=== PATIENT | male | born 1980 | race Caucasian/White ===

== ENCOUNTER 2020-06-29 18:51 | Inpatient (IN) | payer MEDICAID, SELFPAY ==
[2020-06-29 18:52] VITALS: BP 135/92; PULSE 121; RESP 14; TEMP 37; O2SAT 93; BMI 25.1
--- NOTE | 2020-06-29 19:18 | EKG12_ITS ---
Test Reason : ROUTINE Blood Pressure : / mmHG Vent. Rate : 105 BPM Atrial Rate : 105 BPM P-R Int : 178 ms QRS Dur : 086 ms QT Int : 348 ms P-R-T Axes : 070 078 056 degrees QTc Int : 459 ms Sinus tachycardia Septal infarct , age undetermined Abnormal ECG Confirmed by DARELL JONES, MOON ([id number]), mapping editor NOE PEREZ ([id number]) on 07/02/2020 2:57:32 PM Referred By: Confirmed By:TASHIA LOZOYA MD
--- NOTE | 2020-06-29 19:18 | ED.DCSUM_ITS ---
History of Present Illness Chief Complaint: Substance Abuse Informant: Patient Narrative: 9-year-old female with history of EtOH abuse presenting with intoxication and desire to tox. He states he has been drinking heavily for the past 4 years. He states he drinks about 1/5 of diluted vodka daily. Last drink was about an hour to an hour and a half ago. He smokes a pack of cigarettes a day. He states that 2 weeks ago he tried to detox on his own and it almost killed him. He states he drinks 2 cope with his girlfriend. He denies history of withdrawal seizure. He states that when he tried to detox previously he had some nausea and vomiting. Patient states he has a history of drug abuse but no longer does drugs. Past Medical History - Allergies and Home Meds Allergies/Adverse Reactions: Allergies No Known Allergies Allergy (Verified 06/29/20 18:52) Past Medical History: - - EtOH abuse, history of drug abuse, GERD Lives: Spouse/ Significant Other Smoking Status: Current every day smoker Alcohol: Heavy Drugs: None - Family History Maternal Family History: Reports: No pertinent history Paternal Family History: Reports: No pertinent history Review of Systems General: Denies: Chills, Fever, Sweats Eyes: Denies: Visual changes - bilaterally, Diplopia ENT: Denies: Rhinorrhea, Sore throat Cardiovascular: Denies: Chest pain, Palpitations Respiratory: Denies: Dyspnea, Cough, Dyspnea on exertion Gastrointestinal: Denies: Abdominal pain, Nausea, Vomiting, Diarrhea, Melena, Hematochezia Genitourinary: Denies: Dysuria, Hematuria, Frequency Musculoskeletal: Denies: Back pain, Extremity Pain Skin: Denies: Rash, Wounds Neurological: Denies: Headache, Weakness, Numbness Psych: Denies: Depression, Anxiety, Suicidal thoughts, Suicidal ideations, -, - Endocrine: Denies: Polyuria, Polydipsia, Heat intolerance, Cold intolerance, -, - Physical Exam Vital Signs/Narrative: Vital Signs Temp Pulse Resp BP Pulse Ox 06/29/20 18:52 98.6 F 121 H 14 135/92 H 93 General: Well nourished, No Acute Distress Head: Normocephalic, Atraumatic Eyes: Perrl, EOMI. Negative for: Scleral icterus ENT: Moist mucous membranes, No rhinorrhea Cardiovascular: Regular rhythm, Tachycardia Respiratory: No distress, CTA bilaterally Abdomen: Soft, Nontender, Nondistended Extremities: Nontender, No edema Skin: Normal color, No rash. Negative for: Cyanosis, Diaphoresis, Jaundice Neurological: Alert, Oriented x3, Cranial nerves II-XII grossly intact Psychological: Normal Mood, - - Appears intoxicated. Diagnostic/Tx/Re-eval Laboratory Data 06/29/20 06/29/20 06/29/20 19:35 19:35 19:35 WBC 3.3 L RBC 4.23 L Hgb 14.2 Hct 41.6 MCV 98.3 H MCH 33.6 H MCHC 34.1 RDW Std Deviation 49.6 H RDW Coeff of Cesar 13.7 Plt Count 190 MPV 10.3 Immature Gran % (Auto) 0.300 Neut % (Auto) 60.3 Lymph % (Auto) 24.0 [place] % (Auto) 12.3 H Eos % (Auto) 2.2 Baso % (Auto) 0.9 Absolute Neuts (auto) 2.0 Absolute Lymphs (auto) 0.78 L Nucleated RBC % 0 Sodium 139 Potassium 2.9 L Chloride 103 Carbon Dioxide 25.0 Anion Gap 11 BUN 6 L Creatinine 0.83 Estim Creat Clear Calc 135.04 Est GFR (MDRD) Af Amer 132 Est GFR (MDRD) Non-Af 109 BUN/Creatinine Ratio 7.2 L Glucose 94 Calcium 8.4 L Total Bilirubin 0.80 AST 51 H ALT 58 Alkaline Phosphatase 118 H Total Protein 7.3 Albumin 3.8 Globulin 3.5 Albumin/Globulin Ratio 1.1 Lipase 500 H Urine Opiates Screen Urine Methadone Screen Ur Barbiturates Screen Ur Phencyclidine Scrn Ur Amphetamines Screen U Methamphetamin-MDMA U Benzodiazepines Scrn Urine Cocaine Screen U Cannabinoids Screen Ur Drug Screen Comment Ethyl Alcohol 511.0 H* 06/29/20 20:10 WBC RBC Hgb Hct MCV MCH MCHC RDW Std Deviation RDW Coeff of Cesar Plt Count MPV Immature Gran % (Auto) Neut % (Auto) Lymph % (Auto) [place] % (Auto) Eos % (Auto) Baso % (Auto) Absolute Neuts (auto) Absolute Lymphs (auto) Nucleated RBC % Sodium Potassium Chloride Carbon Dioxide Anion Gap BUN Creatinine Estim Creat Clear Calc Est GFR (MDRD) Af Amer Est GFR (MDRD) Non-Af BUN/Creatinine Ratio Glucose Calcium Total Bilirubin AST ALT Alkaline Phosphatase Total Protein Albumin Globulin Albumin/Globulin Ratio Lipase Urine Opiates Screen NEGATIVE Urine Methadone Screen NEGATIVE Ur Barbiturates Screen NEGATIVE Ur Phencyclidine Scrn NEGATIVE Ur Amphetamines Screen NEGATIVE U Methamphetamin-MDMA NEGATIVE U Benzodiazepines Scrn NEGATIVE Urine Cocaine Screen NEGATIVE U Cannabinoids Screen NEGATIVE Ur Drug Screen Comment Ethyl Alcohol - Medical Decision Making Presenting for detox and is slightly tachycardic otherwise not really showing symptoms of withdrawal. EKG performed on arrival interpreted by myself showed a sinus rhythm at 105 bpm. Patient does not appear to be hypertensive and is not currently exhibiting signs of withdrawal however he does appear intoxicated. CBC shows white blood cell count 3.3, hemoglobin 14.2, hematocrit 41.2 platelets 190, CMP shows sodium 139, potassium 2.9, creatinine 0.3, alk phos 118 with other LFTs normal, lipase 500. U tox is negative. EtOH is 511. Patient was discussed with hospitalist for admission for detox. He did not require any medication down here as he is not withdrawing. I did discuss with the hospitalist that I am adding a magnesium level prior to given him potassium. Hospitalist will follow this up on the floor. Patient stable on admission. Impression: 1. EtOH abuse 2. Admission for EtOH detox 3. Elevated lipase 4. Hypokalemia ED Disposition - Plan for ED Patient: Disposition: Acute Care Hospital [facility]
[2020-06-29 19:28] VITALS: BP 134/104; PULSE 102; RESP 13; O2SAT 91
[2020-06-29 19:41] LABS: Absolute Lymphocyte Count 0.78 X10^3/uL (0.83-4.51); Basophil# 0.03 X10^3/uL; Basophil% 0.9 % (0-1); Eosinophil# 0.07 X10^3/uL; Eosinophils% 2.2 % (0-5); Hematocrit 41.6 % (40-54); Hemoglobin 14.2 g/dL (13.0-16.5); Lymphocyte # 0.78 X10^3/ul (4.0); Mean Corp Hgb Conc 34.1 g/dL (32-36); Mean Corpuscular Hgb 33.6 pg (27.0-32.0); Mean Corpuscular Volume 98.3 fL (80-94); Mean Platelet Vol. 10.3 fl (6.2-12.0); Monocyte% 12.3 % (0-10); NRBC Flagged by Analyzer 0 % (0-5); Neutrophil # 1.96 X10^3/uL (2.7-7.7); Neutrophil % 60.3 % (47-70); Platelet Count 190 K/mm3 (150-450); RBC Distribution Width CV 13.7 % (11.6-14.6); RBC Distribution Width SD 49.6 fl (35.1-43.9); Red Blood Count 4.23 M/mm3 (4.6-6.2); White Blood Count 3.3 K/mm3 (4.4-11.0)
[2020-06-29 19:52] VITALS: BP 134/104; PULSE 104; RESP 18; O2SAT 91
[2020-06-29 19:57] LABS: ALB/GLOB Ratio 1.1 RATIO (0.9-2.4); AST(SGOT) 51 U/L (15-37); Alanine Aminotransfer ALT/SGPT 58 U/L (16-61); Albumin, Serum 3.8 g/dL (3.2-5.0); Alkaline Phosphatase 118 U/L (45-117); Anion Gap 11 (5-15); BUN 6 mg/dL (7-18); BUN/Creat Ratio 7.2 RATIO (10-20); Calcium,Total 8.4 mg/dL (8.5-10.1); Chloride 103 mmol/L (98-107); Creatinine, Serum 0.83 mg/dL (0.70-1.30); EST Glomerular Filtration Rate 109 mL/min (>60); Est Glom Filt Rate - Afr Amer 132 mL/min (>60); Estimated Creatinine Clearance 135.04 ml/min; Globulin 3.5 g/dL (2.2-4.2); Glucose 94 mg/dL (74-106); Lipase 500 U/L (73-393); Potassium 2.9 mmol/L (3.5-5.1); Protein, Total 7.3 g/dL (6.4-8.2); Sodium Level 139 mmol/L (136-145)
[2020-06-29 20:50] LABS: Amphetamine Urine VISTA NEGATIVE (<1000 ng/mL); Barbiturate Urine VISTA NEGATIVE (< 200 ng/mL); Benzodiazepine Urine VISTA NEGATIVE (< 200 ng/mL); Cocaine Urine VISTA NEGATIVE (< 300 ng/mL); Ecstacy Urine VISTA NEGATIVE (< 500 ng/mL); Methadone Urine VISTA NEGATIVE (< 300 ng/mL); PCP Urine VISTA NEGATIVE (< 25 ng/mL); THC Urine VISTA NEGATIVE (< 50 ng/mL); Vista UDS pH Range 6
[2020-06-29 21:25] VITALS: BP 129/97; PULSE 92; RESP 18; TEMP 36.7; O2SAT 93
[2020-06-29 21:33] LABS: Magnesium 2.1 mg/dL (1.6-2.6)
--- NOTE | 2020-06-29 21:37 | HP.PCM_ITS ---
Problem List (1) Impending alcohol withdrawal Status: Acute (2) Acute alcohol intoxication Status: Acute (3) Anxiety Status: Chronic (4) Tobacco abuse Status: Chronic (5) Alcohol abuse Status: Chronic History of Present Illness Date of Admission: 06/29/20 Chief Complaint: Requesting admission for alcohol detox The patient is a 39 year old M with past medical history as mentioned above presented to the emergency room requesting admission for alcohol intoxication/impending withdrawal for medical stabilization. Patient has been drinking almost throughout his life, has been drinking more heavily over the last 4 years and last drink was 5:30 PM this evening. He states that he drinks about 1/5 of diluted vodka every day. At this time, he denied any significant withdrawal symptoms. Today afternoon, he had nausea and vomiting when he was drinking. He mentioned that he tried to do detox by himself at home but he could not and he was very sick. He never went for inpatient detoxification program in the past. He denied history of alcohol withdrawal seizure or admission to ICU. He mentioned that he has been very anxious and could not sleep at night and that is why he has been drinking every day to help him sleep. In the emergency department, patient was slightly tachycardic, other vital signs were stable. Routine blood work was remarkable for mild leukopenia probably due to long-term alcoholism, potassium of 2.9. LFT was unremarkable. Lipase was 500. Urine drug screen was negative. Blood alcohol level was 511. EKG revealed sinus tachycardia, no acute ischemic changes. Patient is being admitted for acute alcohol intoxication/impending withdrawal for medical stabilization and also found to have elevated lipase and hypokalemia. Past Medical History Past Medical History (Chronic Problems): Chronic Problems Anxiety (Chronic) Tobacco abuse (Chronic) Alcohol abuse (Chronic) Allergies No Known Allergies Allergy (Verified 06/29/20 18:52) Home Medications: Ambulatory Orders Medication Instructions Recorded Ondansetron [Zofran Odt] 4 mg PO 4X/DAY PRN PRN 06/29/20 Pantoprazole Sodium [Protonix] 40 mg PO DAILY 06/29/20 Surgical History: no surgical history Psychiatric History: Anxiety Lives: Spouse/ Significant Other Smoking Status: Current every day smoker Tobacco Use: Cigarettes Alcohol: Heavy Drugs: None - *Family History Maternal History Items: No pertinent history Paternal History Items: No pertinent history Review of Systems Constitutional: Reports: Anorexia. Denies: Chills, Fever, Weakness Eyes: Denies: Blurred vision, Double vision, Drainage, Redness HEENT: Denies: Difficulty Hearing, Dysphasia, Ear Pain, Eye Pain, Nasal bleeding Cardiovascular: Denies: Chest Pain, Chest Pressure, Edema, Heaviness, Palpitations, Syncope Respiratory: Denies: Cough, Pleuritic Pain, Shortness of Breath, Sputum production, Wheezing Gastrointestinal: Reports: Dyspepsia, Nausea, Vomiting. Denies: Abdominal Pain, Constipation, Diarrhea Genitourinary: Denies: Dysuria, Frequency, Hematuria Musculoskeletal: Denies: Arm Pain, Back Pain, Foot Pain Skin: Denies: Dryness, Rash Neurological: Denies: Balance problems, Double vision, Change in Speech, Slurred speech, Confusion, Headaches, Incoordination Psychiatric: Reports: Anxiety. Denies: Depression Endocrine: Denies: Change in Body Habitus, Polydipsia, Polyuria VTE Information - Inpt Only VTE Present on Admission: No VTE Mechan Device Prophylaxis: None VTE Pharm Prophylaxis ordered?: No - Physical Exam Vitals/I&O's: Vital Signs Temp Pulse Resp BP Pulse Ox 98.0 F 92 18 129/97 H 93 06/29/20 21:25 06/29/20 21:25 06/29/20 21:25 06/29/20 21:25 06/29/20 21:25 Oxygen Delivery Method Room Air Weight: 190 lb 4.143 oz Body Mass Index (BMI) 25.1 General: Alert, Oriented x3, Cooperative, No apparent distress HEENT: Atraumatic, PERRLA, EOMI, Normocephalic Oral: Moist Mucosa, No Gingival or Mucosal Lesions/ Ulcerations Neck: Supple, No JVD, Negative Carotid Bruits, Trachea Midline, Thyroid Normal Size and Texture Lungs: Clear to auscultation, Normal air movement, No rhonchi, No wheeze, No rales Cardiovascular: Regular rate, Regular Rhythm, Normal S1, Normal S2, PMI Normal, Tachycardic Abdomen: Bowel Sounds Present, Soft, Non Tender, Non-Distended, No Hepato- splenomegaly Extremities: No clubbing, No cyanosis, No edema Skin: No rashes, No breakdown Lymphatic: No Cervical, Supraclavicular, or Inguinal Adenopathy Neurological: Cranial nerves II-XII grossly intact, Motor Exam 5/5 strength throughout Psych/Mental Status: Normal Affect, Appropriate, Alert and oriented to time, place, person, mood and affect Laboratory Results 06/29/20 19:35: WBC 3.3 L, RBC 4.23 L, Hgb 14.2, Hct 41.6, MCV 98.3 H, MCH 33.6 H, MCHC 34.1, RDW Std Deviation 49.6 H, RDW Coeff of Cesar 13.7, Plt Count 190, MPV 10.3, Immature Gran % (Auto) 0.300, Neut % (Auto) 60.3, Lymph % (Auto) 24.0, [place] % (Auto) 12.3 H, Eos % (Auto) 2.2, Baso % (Auto) 0.9, Absolute Neuts (auto) 2.0, Absolute Lymphs (auto) 0.78 L, Nucleated RBC % 0 06/29/20 19:35: Sodium 139, Potassium 2.9 L, Chloride 103, Carbon Dioxide 25.0, Anion Gap 11, BUN 6 L, Creatinine 0.83, Estim Creat Clear Calc 135.04, Est GFR (MDRD) Af Amer 132, Est GFR (MDRD) Non-Af 109, BUN/Creatinine Ratio 7.2 L, Glucose 94, Calcium 8.4 L, Total Bilirubin 0.80, AST 51 H, ALT 58, Alkaline Phosphatase 118 H, Total Protein 7.3, Albumin 3.8, Globulin 3.5, Albumin/Globulin Ratio 1.1, Lipase 500 H 06/29/20 19:35: Ethyl Alcohol 511.0 H* 06/29/20 19:35: Magnesium 2.1 06/29/20 20:10: Urine Opiates Screen NEGATIVE, Urine Methadone Screen NEGATIVE, Ur Barbiturates Screen NEGATIVE, Ur Phencyclidine Scrn NEGATIVE, Ur Amphetamines Screen NEGATIVE, U Methamphetamin-MDMA NEGATIVE, U Benzodiazepines Scrn NEGATIVE, Urine Cocaine Screen NEGATIVE, U Cannabinoids Screen NEGATIVE, Ur Drug Screen Comment Assessment/Plan All Active Problems Impending alcohol withdrawal (Acute) Acute alcohol intoxication (Acute) This is a 39 years old male patient presented to the emergency room requesting admission for acute alcohol intoxication/impending withdrawal for medical stabilization. #1 acute alcohol intoxication/impending withdrawal: Blood alcohol level is 511. Urine drug screen is negative. Currently, patient slightly tachycardic, other vital signs are stable. LFT was unremarkable. [facility] telemetry, IV fluids, initiate alcohol withdrawal protocol with tapering phenobarbital, thiamine and folate acid supplement, CIWA protocol, Ativan as needed, as needed Tylenol, Bentyl, gabapentin, Vistaril, Zofran and trazodone, repeat CMP and lipase tomorrow morning, consult 180 program. #2 hypokalemia: Due to nausea and vomiting. Serum magnesium is normal. Plan to replace potassium with K. Dur 60 mEq p.o. x1, repeat BMP tomorrow morning. #3 elevated lipase: Likely due to pancreatic irritation because of alcoholism. Patient denies any epigastric or abdominal pain. Plan: IV fluids, repeat CMP a nd lipase tomorrow morning. #4 alcohol abuse: Plan as above. #5 tobacco abuse: NicoDerm patch. #6 anxiety/insomnia: With suspected depression. Patient has been drinking every day to treat anxiety. He has not been able to sleep overnight. He may need to be started on antidepressant upon discharge. #7 DVT prophylaxis: Low risk patient, no prophylaxis indicated. This note was generated with [employer] dictation software. It may contain incorrect words, spelling, and punctuation that were not noted in checking the note before signing. Inpatient E&M: [id number] Init Hosp L2
[2020-06-29 22:14] VITALS: BMI 24.9
[2020-06-29 22:27] VITALS: BP 128/89; PULSE 95; RESP 16; TEMP 37.3; O2SAT 97
[2020-06-29] MEDS: Potassium Chloride Oral Tablet 20 MEQ 60 MEQ PO (22:45)
[2020-06-29] MEDS: Phenobarbital 32.4 MG Tablet 64.8 MG PO (22:46)
[2020-06-29] MEDS: Pantoprazole Sodium 40 MG Tablet PO (22:48)
[2020-06-29] MEDS: 0.9% Saline Lock 10 ML Syringe IV (23:01)
[2020-06-29] MEDS: 0.9% Normal Saline 1,000 ML 100 ML IV (23:02)
[2020-06-29 23:35] VITALS: PULSE 99
[2020-06-29] MEDS: traZODone 100 MG Tablet PO (23:47)
[2020-06-30] VITALS (12 sets, daily range): BP systolic 104–137; BP diastolic 59–94; PULSE 91–111; RESP 14–18; TEMP 36.4–37.1; O2SAT 94–96
[2020-06-30] MEDS: Phenobarbital 32.4 MG Tablet 64.8 MG PO ×6 (03:08→22:16)
[2020-06-30] MEDS: Ondansetron 8 MG Tablet PO (03:10)
[2020-06-30] MEDS: hydrOXYzine PAM 25 MG Capsule 50 MG PO (03:12)
[2020-06-30 07:06] LABS: ALB/GLOB Ratio 0.9 RATIO (0.9-2.4); AST(SGOT) 41 U/L (15-37); Alanine Aminotransfer ALT/SGPT 49 U/L (16-61); Albumin, Serum 3.1 g/dL (3.2-5.0); Alkaline Phosphatase 102 U/L (45-117); Anion Gap 6 (5-15); BUN 5 mg/dL (7-18); BUN/Creat Ratio 6.8 RATIO (10-20); Calcium,Total 8.3 mg/dL (8.5-10.1); Chloride 106 mmol/L (98-107); Creatinine, Serum 0.74 mg/dL (0.70-1.30); EST Glomerular Filtration Rate 125 mL/min (>60); Est Glom Filt Rate - Afr Amer 151 mL/min (>60); Estimated Creatinine Clearance 149.96 ml/min; Globulin 3.3 g/dL (2.2-4.2); Glucose 80 mg/dL (74-106); Lipase 278 U/L (73-393); Potassium 3.8 mmol/L (3.5-5.1); Protein, Total 6.4 g/dL (6.4-8.2); Sodium Level 138 mmol/L (136-145)
--- NOTE | 2020-06-30 09:34 | ADDICTION ---
This mortgage underwriter attempted to meet with PT to complete required assessments and to plan for d/c. PT was awake but requested to meet with this mortgage underwriter tomorrow (07/01) as he is really out of it and cannot keep my eyes open. This mortgage underwriter will attempt to engage with PT during next visit.
[2020-06-30] MEDS: Folic Acid 1 MG Tablet PO (09:36)
[2020-06-30] MEDS: Pantoprazole Sodium 40 MG Tablet PO ×2 (09:36→22:16)
[2020-06-30] MEDS: Thiamine Hydrochloride 100 MG Tablet PO (09:36)
[2020-06-30] MEDS: 0.9% Normal Saline 1,000 ML 100 ML IV (09:36)
[2020-06-30] MEDS: Ondansetron 4 MG/2 ML Vial IV (09:55)
[2020-06-30] MEDS: 0.9% Saline Lock 10 ML Syringe IV ×2 (09:55→22:31)
--- NOTE | 2020-06-30 10:44 | PCM.PN.HOSP ---
<Jeff Ellison - Last Filed: 06/30/20 10:44> Patient Problems: Active and Suspected Problems Impending alcohol withdrawal (Acute) Acute alcohol intoxication (Acute) Subjective: Patient is a 40-year-old male who was sleeping comfortably in bed, alert and oriented x3. Patient does endorse mild nausea, although he was able to eat about half of his breakfast. Patient denies any other symptoms in regards to alcohol withdrawal to include tremors, hallucinations, seizures, loss of consciousness, chest pain, shortness of breath, fevers, chills, N/V/D. Vitals/I&O's: Vital Signs Temp Pulse Resp BP Pulse Ox 98.0 F 106 H 18 127/88 H 95 06/30/20 09:33 06/30/20 09:33 06/30/20 09:33 06/30/20 09:33 06/30/20 09:33 Oxygen Delivery Method Room Air Weight: 188 lb 14.978 oz Body Mass Index (BMI) 24.9 Intake and Output for Last 24 Hours 06/28/20 06/29/20 06/30/20 23:59 23:59 23:59 Intake Total 450 / 450 1000 / 1000 Balance 450 / 450 1000 / 1000 General: Alert, Oriented x3, Cooperative HEENT: Atraumatic, PERRLA, EOMI, Normocephalic Neck: Supple, No JVD, Negative Carotid Bruits Lungs: Clear to auscultation, Normal air movement Cardiovascular: Regular rate, No murmurs Abdomen: Bowel Sounds Present, Soft, Non Tender Extremities: No edema, Capillary Refill Less than 3 Seconds Skin: No rashes, No breakdown Musculoskeletal: No Tenderness to Palpation of Joints or Extremities Neurological: Cranial nerves II-XII grossly intact Psych/Mental Status: Normal Affect, Appropriate Laboratory Results 06/29/20 19:35: WBC 3.3 L, RBC 4.23 L, Hgb 14.2, Hct 41.6, MCV 98.3 H, MCH 33.6 H, MCHC 34.1, RDW Std Deviation 49.6 H, RDW Coeff of Cesar 13.7, Plt Count 190, MPV 10.3, Immature Gran % (Auto) 0.300, Neut % (Auto) 60.3, Lymph % (Auto) 24.0, [place] % (Auto) 12.3 H, Eos % (Auto) 2.2, Baso % (Auto) 0.9, Absolute Neuts (auto) 2.0, Absolute Lymphs (auto) 0.78 L, Nucleated RBC % 0 06/29/20 19:35: Sodium 139, Potassium 2.9 L, Chloride 103, Carbon Dioxide 25.0, Anion Gap 11, BUN 6 L, Creatinine 0.83, Estim Creat Clear Calc 135.04, Est GFR (MDRD) Af Amer 132, Est GFR (MDRD) Non-Af 109, BUN/Creatinine Ratio 7.2 L, Glucose 94, Calcium 8.4 L, Total Bilirubin 0.80, AST 51 H, ALT 58, Alkaline Phosphatase 118 H, Total Protein 7.3, Albumin 3.8, Globulin 3.5, Albumin/Globulin Ratio 1.1, Lipase 500 H 06/29/20 19:35: Ethyl Alcohol 511.0 H* 06/29/20 19:35: Magnesium 2.1 06/29/20 20:10: Urine Opiates Screen NEGATIVE, Urine Methadone Screen NEGATIVE, Ur Barbiturates Screen NEGATIVE, Ur Phencyclidine Scrn NEGATIVE, Ur Amphetamines Screen NEGATIVE, U Methamphetamin-MDMA NEGATIVE, U Benzodiazepines Scrn NEGATIVE, Urine Cocaine Screen NEGATIVE, U Cannabinoids Screen NEGATIVE, Ur Drug Screen Comment 06/30/20 06:05: Sodium 138, Potassium 3.8, Chloride 106, Carbon Dioxide 26.0, Anion Gap 6, BUN 5 L, Creatinine 0.74, Estim Creat Clear Calc 149.96, Est GFR (MDRD) Af Amer 151, Est GFR (MDRD) Non-Af 125, BUN/Creatinine Ratio 6.8 L, Glucose 80, Calcium 8.3 L, Total Bilirubin 1.00, AST 41 H, ALT 49, Alkaline Phosphatase 102, Total Protein 6.4, Albumin 3.1 L, Globulin 3.3, Albumin/Globulin Ratio 0.9, Lipase 278 Current Medications Acetaminophen (Acetaminophen 500 Mg Tablet) 500 mg PO Q4H PRN PRN PRN Reason: Temp > 100.4 F Dicyclomine HCl (Dicyclomine 10 Mg Capsule) 20 mg PO Q6H PRN PRN PRN Reason: abdominal discomfort Folic Acid (Folic Acid 1 Mg Tablet) 1 mg PO DAILY@0800 [facility] Last Admin: 06/30/20 09:36 Dose: 1 mg Documented by: Gabapentin (Gabapentin 300 Mg Capsule) 300 mg PO Q8H PRN PRN PRN Reason: moderate to severe anxiety Hydroxyzine Pamoate (Hydroxyzine Benita 25 Mg Capsule) 50 mg PO Q4H PRN PRN PRN Reason: mild anxiety Last Admin: 06/30/20 03:12 Dose: 50 mg Documented by: Sodium Chloride () 1,000 mls @ 100 mls/hr IV .Q10H [facility] Stop: 06/30/20 18:12 Last Admin: 06/30/20 09:36 Dose: 100 mls/hr Documented by: Loperamide HCl (Loperamide 2 Mg Capsule) 2 mg PO Q4H PRN PRN PRN Reason: LOOSE STOOLS Lorazepam (Lorazepam 1 Mg Tablet) 2 mg PO Q2H PRN PRN; Protocol PRN Reason: CIWA score > 8 but <15 Lorazepam (Lorazepam 1 Mg Tablet) 2 mg PO UD PRN; Protocol PRN Reason: CIWA score >/=15. Lorazepam (Lorazepam 2 Mg/Ml Syringe) 2 mg IV Q2H PRN PRN; Protocol PRN Reason: CIWA score > 8 but <15 Lorazepam (Lorazepam 2 Mg/Ml Syringe) 2 mg IV UD PRN; Protocol PRN Reason: CIWA score >/=15. Nicotine (Nicotine 21 Mg Patch) 21 mg TD DAILY [facility] Last Admin: 06/30/20 09:36 Dose: 21 mg Documented by: Nutritional Formula (Lactose Free) (Ensure Enlive 120 Ml Liquid) 120 ml PO 4X/DAY [facility] Last Admin: 06/30/20 09:36 Dose: Not Given Documented by: Ondansetron HCl (Ondansetron 8 Mg Tablet) 8 mg PO Q8H PRN PRN PRN Reason: NAUSEA Last Admin: 06/30/20 03:10 Dose: 8 mg Documented by: Ondansetron HCl (Ondansetron 4 Mg/2 Ml Vial) 4 mg IV Q4H PRN PRN PRN Reason: NAUSEA Last Admin: 06/30/20 09:55 Dose: 4 mg Documented by: Pantoprazole Sodium (Pantoprazole Sodium 40 Mg Tablet) 40 mg PO BID [facility] Last Admin: 06/30/20 09:36 Dose: 40 mg Documented by: Phenobarbital (Phenobarbital 32.4 Mg Tablet) 97.2 mg PO Q4H [facility]; Taper Stop: 07/04/20 06:29 Last Admin: 06/30/20 09:36 Dose: 97.2 mg Documented by: Sodium Chloride (0.9% Saline Lock 10 Ml Syringe) 10 - 40 ml IV UD PRN PRN Reason: SALINE FLUSH Last Admin: 06/30/20 09:55 Dose: 10 ml Documented by: Thiamine HCl (Thiamine Hydrochloride 100 Mg Tablet) 100 mg PO DAILYCM [facility] Last Admin: 06/30/20 09:36 Dose: 100 mg Documented by: Trazodone HCl (Trazodone 100 Mg Tablet) 100 mg PO QHS PRN PRN Reason: INSOMNIA Last Admin: 06/29/20 23:47 Dose: 100 mg Documented by: STROKE Vital Signs/Narrative: Vital Signs Temp Pulse Resp BP Pulse Ox 06/30/20 09:33 98.0 F 106 H 18 127/88 H 95 06/30/20 07:47 93 Medical Necessity - Tobacco Use Smoking Status: Current every day smoker Tobacco Use: Cigarettes Assessment/Plan All Active Problems Impending alcohol withdrawal (Acute) Acute alcohol intoxication (Acute) Patient is a 40-year-old male who was admitted requesting medical stabilization and detoxification from alcohol. According to patient he is a lifelong drinker and mostly recently drinks vodka on a daily basis. On my exam today patient was sleeping comfortably in bed, he was complaining of some nausea although was able to eat about half of his breakfast. Patient endorses no other complaints in regards to withdrawal to include loss of consciousness, seizure-like activity, hallucinations, tremors. Addiction medicine counselor did attempt to talk with the patient although patient was unable to participate in conversation claiming he was really out of it. Addiction medicine medicine counselor to reattempt contact tomorrow. 1) Acute alcohol intoxication/impending withdrawal/medical stabilization Assessment - Thiamine and folic acid infusion initiated on admission - Phenobarbital taper initiated on admission, taper through 07/04/2020 - DOLORES?AR score 2 - LFTs unremarkable Plan - Continue phenobarbital taper - Continue Ativan, Tylenol, Bentyl, gabapentin, Vistaril, Zofran and trazodone as needed - Addiction medicine counselor will attempt to reengage patient tomorrow about disposition 2) Hypokalemia Assessment - Resolved, 3.8 - Potassium chloride infused on admission x1 Plan -Continue to monitor 3) Elevated Lipase Assessment - 500 on admission, likely secondary to intoxication - Resolved, 278 Plan - Continue IV fluids - Continue to monitor 4) [employer] abuse Assessment - Cessation encouraged Plan - Continue NicoDerm patch 5) Anxiety/Depression Assessment - Suspected on admission - Patient self reports that he drinks daily to manage his anxiety Plan - May need to be initiated on antidepressant upon discharge DVT prophylaxis -low risk/not indicated Patient seen by Jeff Ellison PA-C, under the supervision of Dr. Green. <Miguelina Green Shanna - Last Filed: 06/30/20 15:09> Vitals/I&O's: Vital Signs Temp Pulse Resp BP Pulse Ox 98.7 F 105 H 14 136/88 H 94 06/30/20 13:59 06/30/20 13:59 06/30/20 13:59 06/30/20 13:59 06/30/20 13:59 Oxygen Delivery Method Room Air Weight: 188 lb 14.978 oz Body Mass Index (BMI) 24.9 Intake and Output for Last 24 Hours 06/28/20 06/29/20 06/30/20 23:59 23:59 23:59 Intake Total 450 / 450 1300 / 1300 Balance 450 / 450 1300 / 1300 Laboratory Results 06/29/20 19:35: WBC 3.3 L, RBC 4.23 L, Hgb 14.2, Hct 41.6, MCV 98.3 H, MCH 33.6 H, MCHC 34.1, RDW Std Deviation 49.6 H, RDW Coeff of Cesar 13.7, Plt Count 190, MPV 10.3, Immature Gran % (Auto) 0.300, Neut % (Auto) 60.3, Lymph % (Auto) 24.0, [place] % (Auto) 12.3 H, Eos % (Auto) 2.2, Baso % (Auto) 0.9, Absolute Neuts (auto) 2.0, Absolute Lymphs (auto) 0.78 L, Nucleated RBC % 0 06/29/20 19:35: Sodium 139, Potassium 2.9 L, Chloride 103, Carbon Dioxide 25.0, Anion Gap 11, BUN 6 L, Creatinine 0.83, Estim Creat Clear Calc 135.04, Est GFR (MDRD) Af Amer 132, Est GFR (MDRD) Non-Af 109, BUN/Creatinine Ratio 7.2 L, Glucose 94, Calcium 8.4 L, Total Bilirubin 0.80, AST 51 H, ALT 58, Alkaline Phosphatase 118 H, Total Protein 7.3, Albumin 3.8, Globulin 3.5, Albumin/Globulin Ratio 1.1, Lipase 500 H 06/29/20 19:35: Ethyl Alcohol 511.0 H* 06/29/20 19:35: Magnesium 2.1 06/29/20 20:10: Urine Opiates Screen NEGATIVE, Urine Methadone Screen NEGATIVE, Ur Barbiturates Screen NEGATIVE, Ur Phencyclidine Scrn NEGATIVE, Ur Amphetamines Screen NEGATIVE, U Methamphetamin-MDMA NEGATIVE, U Benzodiazepines Scrn NEGATIVE, Urine Cocaine Screen NEGATIVE, U Cannabinoids Screen NEGATIVE, Ur Drug Screen Comment 06/30/20 06:05: Sodium 138, Potassium 3.8, Chloride 106, Carbon Dioxide 26.0, Anion Gap 6, BUN 5 L, Creatinine 0.74, Estim Creat Clear Calc 149.96, Est GFR (MDRD) Af Amer 151, Est GFR (MDRD) Non-Af 125, BUN/Creatinine Ratio 6.8 L, Glucose 80, Calcium 8.3 L, Total Bilirubin 1.00, AST 41 H, ALT 49, Alkaline Phosphatase 102, Total Protein 6.4, Albumin 3.1 L, Globulin 3.3, Albumin/Globulin Ratio 0.9, Lipase 278 Current Medications Acetaminophen (Acetaminophen 500 Mg Tablet) 500 mg PO Q4H PRN PRN PRN Reason: Temp > 100.4 F Dicyclomine HCl (Dicyclomine 10 Mg Capsule) 20 mg PO Q6H PRN PRN PRN Reason: abdominal discomfort Folic Acid (Folic Acid 1 Mg Tablet) 1 mg PO DAILY@0800 [facility] Last Admin: 06/30/20 09:36 Dose: 1 mg Documented by: Gabapentin (Gabapentin 300 Mg Capsule) 300 mg PO Q8H PRN PRN PRN Reason: moderate to severe anxiety Hydroxyzine Pamoate (Hydroxyzine Benita 25 Mg Capsule) 50 mg PO Q4H PRN PRN PRN Reason: mild anxiety Last Admin: 06/30/20 03:12 Dose: 50 mg Documented by: Sodium Chloride () 1,000 mls @ 100 mls/hr IV .Q10H [facility] Stop: 06/30/20 18:12 Last Admin: 06/30/20 09:36 Dose: 100 mls/hr Documented by: Loperamide HCl (Loperamide 2 Mg Capsule) 2 mg PO Q4H PRN PRN PRN Reason: LOOSE STOOLS Lorazepam (Lorazepam 1 Mg Tablet) 2 mg PO Q2H PRN PRN; Protocol PRN Reason: CIWA score > 8 but <15 Lorazepam (Lorazepam 1 Mg Tablet) 2 mg PO UD PRN; Protocol PRN Reason: CIWA score >/=15. Lorazepam (Lorazepam 2 Mg/Ml Syringe) 2 mg IV Q2H PRN PRN; Protocol PRN Reason: CIWA score > 8 but <15 Lorazepam (Lorazepam 2 Mg/Ml Syringe) 2 mg IV UD PRN; Protocol PRN Reason: CIWA score >/=15. Last Admin: 06/30/20 12:55 Dose: 2 mg Documented by: Nicotine (Nicotine 21 Mg Patch) 21 mg TD DAILY [facility] Last Admin: 06/30/20 09:36 Dose: 21 mg Documented by: Nutritional Formula (Lactose Free) (Ensure Enlive 120 Ml Liquid) 120 ml PO 4X/DAY [facility] Last Admin: 06/30/20 14:03 Dose: Not Given Documented by: Ondansetron HCl (Ondansetron 8 Mg Tablet) 8 mg PO Q8H PRN PRN PRN Reason: NAUSEA Last Admin: 06/30/20 03:10 Dose: 8 mg Documented by: Ondansetron HCl (Ondansetron 4 Mg/2 Ml Vial) 4 mg IV Q4H PRN PRN PRN Reason: NAUSEA Last Admin: 06/30/20 09:55 Dose: 4 mg Documented by: Pantoprazole Sodium (Pantoprazole Sodium 40 Mg Tablet) 40 mg PO BID [facility] Last Admin: 06/30/20 09:36 Dose: 40 mg Documented by: Phenobarbital (Phenobarbital 32.4 Mg Tablet) 97.2 mg PO Q4H [facility]; Taper Stop: 07/04/20 06:29 Last Admin: 06/30/20 14:03 Dose: 97.2 mg Documented by: Sodium Chloride (0.9% Saline Lock 10 Ml Syringe) 10 - 40 ml IV UD PRN PRN Reason: SALINE FLUSH Last Admin: 06/30/20 09:55 Dose: 10 ml Documented by: Thiamine HCl (Thiamine Hydrochloride 100 Mg Tablet) 100 mg PO DAILYCM [facility] Last Admin: 06/30/20 09:36 Dose: 100 mg Documented by: Trazodone HCl (Trazodone 100 Mg Tablet) 100 mg PO QHS PRN PRN Reason: INSOMNIA Last Admin: 06/29/20 23:47 Dose: 100 mg Documented by: STROKE Vital Signs/Narrative: Vital Signs Temp Pulse Resp BP Pulse Ox 06/30/20 13:59 98.7 F 105 H 14 136/88 H 94 06/30/20 12:00 91 Assessment/Plan Patient seen by Jeff Ellison PA-C under my supervision Patient seen and examined. He is managed for acute alcohol withdrawal. He has no complaints today. He denies any tremors or abdominal cramps or increased sweating. Review of systems otherwise negative. O/E: Vital Signs Temp Pulse Resp BP Pulse Ox 98.7 F 105 H 14 136/88 H 94 06/30/20 13:59 06/30/20 13:59 06/30/20 13:59 06/30/20 13:59 06/30/20 13:59 General: Alert, Oriented x3, Cooperative HEENT: Atraumatic, PERRLA, EOMI, Normocephalic Neck: Supple, No JVD, Negative Carotid Bruits Lungs: Clear to auscultation, Normal air movement Cardiovascular: Regular rate, No murmurs Abdomen: Bowel Sounds Present, Soft, Non Tender Extremities: No edema, Capillary Refill Less than 3 Seconds Skin: No rashes, No breakdown Musculoskeletal: No Tenderness to Palpation of Joints or Extremities Neurological: Cranial nerves II-XII grossly intact Psych/Mental Status: Normal Affect, Appropriate Plan is to continue alcohol withdrawal protocol with phenobarbital. Monitor CIWA score. Continue with folic acid, Multivite and thiamine supplementation. Patient plans to go to an inpatient rehab facility in [place] for discharge. Case management on board. Encourage ambulation for DVT prophylaxis as he is low risk. Rest as per Jeff Ellison PA-C's notes which I reviewed and endorsed. Inpatient E&M: 14219 Subs Hosp L2
[2020-06-30] MEDS: LORazepam 2 MG/ML Syringe IV (12:55)
[2020-07-01] MEDS: traZODone 100 MG Tablet PO ×2 (00:15→23:47)
[2020-07-01 00:29] VITALS: PULSE 108
[2020-07-01] MEDS: 0.9% Saline Lock 10 ML Syringe IV (00:33)
[2020-07-01 03:07] VITALS: BP 137/99; PULSE 85; RESP 16; TEMP 36.8; O2SAT 95
[2020-07-01] MEDS: Phenobarbital 32.4 MG Tablet 64.8 MG PO ×6 (03:10→23:02)
[2020-07-01 06:29] VITALS: PULSE 76
[2020-07-01 09:00] VITALS: BP 113/81; PULSE 87; RESP 18; TEMP 36.8; O2SAT 98
[2020-07-01] MEDS: Thiamine Hydrochloride 100 MG Tablet PO (09:05)
[2020-07-01] MEDS: Folic Acid 1 MG Tablet PO (09:05)
[2020-07-01] MEDS: Pantoprazole Sodium 40 MG Tablet PO ×2 (09:05→23:03)
--- NOTE | 2020-07-01 09:09 | ADDICTION ---
This tag writer met with PT to complete ASAM, MSE, AUDIT assessments and to plan for d/c. All assessments completed, faxed to [facility] and placed in PT's chart. PT presented as oriented x4 and participated appropriately. PT to d/c to home and plans to admit to [facility] treatment on Sunday07/05/20. This tag writer encouraged a direct admit from [facility] to [facility], PT declined stating that he needs to collect his things and make some calls. This tag writer has sent referral to [facility] and will maintain contact with PT, as needed, until admit to [facility]. PT amiable to plan.
--- NOTE | 2020-07-01 10:50 | PCM.PROGNOTE ---
<Jimena Lundy CONSULTING SOLUTION MANAGER - Last Filed: 07/01/20 10:56> Patient Problems: Active and Suspected Problems Impending alcohol withdrawal (Acute) Acute alcohol intoxication (Acute) Subjective: Patient seen and examined. Reports feeling tired. Denies withdrawal symptoms. [facility], plan for discharge home following medical stabilization protocol with return to residential treatment on 07/05/2020. - Physical Exam Vitals/I&O's: Vital Signs Temp Pulse Resp BP Pulse Ox 98.2 F 87 18 113/81 H 98 07/01/20 09:00 07/01/20 09:00 07/01/20 09:00 07/01/20 09:00 07/01/20 09:00 Oxygen Delivery Method Room Air Weight: 188 lb 14.978 oz Body Mass Index (BMI) 24.9 Intake and Output for Last 24 Hours 06/29/20 06/30/20 07/01/20 23:59 23:59 23:59 Intake Total 450 / 450 2300 / 2300 Balance 450 / 450 2300 / 2300 General: Alert, Oriented x3, Cooperative HEENT: Atraumatic, PERRLA, EOMI, Normocephalic Neck: Supple, No JVD, Negative Carotid Bruits Lungs: Clear to auscultation, Normal air movement Cardiovascular: Regular rate, No murmurs Abdomen: Bowel Sounds Present, Soft, Non Tender, Non-Distended Extremities: No clubbing, No cyanosis, No edema, Capillary Refill Less than 3 Seconds Skin: No rashes, No breakdown Musculoskeletal: No Tenderness to Palpation of Joints or Extremities Neurological: Cranial nerves II-XII grossly intact, Neuro grossly intact Psych/Mental Status: Normal Affect, Appropriate Current Medications Acetaminophen (Acetaminophen 500 Mg Tablet) 500 mg PO Q4H PRN PRN PRN Reason: Temp > 100.4 F Dicyclomine HCl (Dicyclomine 10 Mg Capsule) 20 mg PO Q6H PRN PRN PRN Reason: abdominal discomfort Folic Acid (Folic Acid 1 Mg Tablet) 1 mg PO DAILY@0800 [facility] Last Admin: 07/01/20 09:05 Dose: 1 mg Documented by: Gabapentin (Gabapentin 300 Mg Capsule) 300 mg PO Q8H PRN PRN PRN Reason: moderate to severe anxiety Hydroxyzine Pamoate (Hydroxyzine Benita 25 Mg Capsule) 50 mg PO Q4H PRN PRN PRN Reason: mild anxiety Last Admin: 06/30/20 03:12 Dose: 50 mg Documented by: Loperamide HCl (Loperamide 2 Mg Capsule) 2 mg PO Q4H PRN PRN PRN Reason: LOOSE STOOLS Lorazepam (Lorazepam 1 Mg Tablet) 2 mg PO Q2H PRN PRN; Protocol PRN Reason: CIWA score > 8 but <15 Lorazepam (Lorazepam 1 Mg Tablet) 2 mg PO UD PRN; Protocol PRN Reason: CIWA score >/=15. Lorazepam (Lorazepam 2 Mg/Ml Syringe) 2 mg IV Q2H PRN PRN; Protocol PRN Reason: CIWA score > 8 but <15 Lorazepam (Lorazepam 2 Mg/Ml Syringe) 2 mg IV UD PRN; Protocol PRN Reason: CIWA score >/=15. Last Admin: 06/30/20 12:55 Dose: 2 mg Documented by: Nicotine (Nicotine 21 Mg Patch) 21 mg TD DAILY [facility] Last Admin: 07/01/20 09:05 Dose: 21 mg Documented by: Nutritional Formula (Lactose Free) (Ensure Enlive 120 Ml Liquid) 120 ml PO 4X/DAY [facility] Last Admin: 07/01/20 09:06 Dose: 120 ml Documented by: Ondansetron HCl (Ondansetron 8 Mg Tablet) 8 mg PO Q8H PRN PRN PRN Reason: NAUSEA Last Admin: 06/30/20 03:10 Dose: 8 mg Documented by: Ondansetron HCl (Ondansetron 4 Mg/2 Ml Vial) 4 mg IV Q4H PRN PRN PRN Reason: NAUSEA Last Admin: 06/30/20 09:55 Dose: 4 mg Documented by: Pantoprazole Sodium (Pantoprazole Sodium 40 Mg Tablet) 40 mg PO BID [facility] Last Admin: 07/01/20 09:05 Dose: 40 mg Documented by: Phenobarbital (Phenobarbital 32.4 Mg Tablet) 64.8 mg PO Q4H [facility]; Taper Stop: 07/04/20 06:29 Last Admin: 07/01/20 06:12 Dose: 64.8 mg Documented by: Sodium Chloride (0.9% Saline Lock 10 Ml Syringe) 10 - 40 ml IV UD PRN PRN Reason: SALINE FLUSH Last Admin: 07/01/20 00:33 Dose: 10 ml Documented by: Thiamine HCl (Thiamine Hydrochloride 100 Mg Tablet) 100 mg PO DAILYCM [facility] Last Admin: 07/01/20 09:05 Dose: 100 mg Documented by: Trazodone HCl (Trazodone 100 Mg Tablet) 100 mg PO QHS PRN PRN Reason: INSOMNIA Last Admin: 07/01/20 00:15 Dose: 100 mg Documented by: Medical Necessity - Tobacco Use Smoking Status: Current every day smoker Tobacco Use: Cigarettes Assessment/Plan All Active Problems Impending alcohol withdrawal (Acute) Acute alcohol intoxication (Acute) 1. Acute alcohol withdrawal, chronic alcohol dependence-medical stabilization per protocol. On phenobarb taper. As needed regimen for somatic complaints. Thiamine, folic acid, multivitamin supplementation. [employer] consulted. 2. Tobacco dependence-encouraged cessation. Nicotine replacement patch. 3. Anxiety/depression-not on regimen, outpatient follow-up. 4. GERD continue PPI.- DVT prophylaxis-low risk, not indicated Discharge planning: Home 07/02/2020 with admission to residential treatment 07/05/20. This patient was seen by CHRISTIANO Remy under the supervision of Dr. Green. <Miguelina Green - Last Filed: 07/01/20 15:16> - Physical Exam Vitals/I&O's: Vital Signs Temp Pulse Resp BP Pulse Ox 98.2 F 87 18 113/81 H 98 07/01/20 09:00 07/01/20 09:00 07/01/20 09:00 07/01/20 09:00 07/01/20 09:00 Oxygen Delivery Method Room Air Weight: 188 lb 14.978 oz Body Mass Index (BMI) 24.9 Intake and Output for Last 24 Hours 06/29/20 06/30/20 07/01/20 23:59 23:59 23:59 Intake Total 450 / 450 2300 / 2300 850 / 850 Balance 450 / 450 2300 / 2300 850 / 850 Current Medications Acetaminophen (Acetaminophen 500 Mg Tablet) 500 mg PO Q4H PRN PRN PRN Reason: Temp > 100.4 F Dicyclomine HCl (Dicyclomine 10 Mg Capsule) 20 mg PO Q6H PRN PRN PRN Reason: abdominal discomfort Folic Acid (Folic Acid 1 Mg Tablet) 1 mg PO DAILY@0800 [facility] Last Admin: 07/01/20 09:05 Dose: 1 mg Documented by: Gabapentin (Gabapentin 300 Mg Capsule) 300 mg PO Q8H PRN PRN PRN Reason: moderate to severe anxiety Hydroxyzine Pamoate (Hydroxyzine Benita 25 Mg Capsule) 50 mg PO Q4H PRN PRN PRN Reason: mild anxiety Last Admin: 07/01/20 14:51 Dose: 50 mg Documented by: Loperamide HCl (Loperamide 2 Mg Capsule) 2 mg PO Q4H PRN PRN PRN Reason: LOOSE STOOLS Lorazepam (Lorazepam 1 Mg Tablet) 2 mg PO Q2H PRN PRN; Protocol PRN Reason: CIWA score > 8 but <15 Lorazepam (Lorazepam 1 Mg Tablet) 2 mg PO UD PRN; Protocol PRN Reason: CIWA score >/=15. Lorazepam (Lorazepam 2 Mg/Ml Syringe) 2 mg IV Q2H PRN PRN; Protocol PRN Reason: CIWA score > 8 but <15 Lorazepam (Lorazepam 2 Mg/Ml Syringe) 2 mg IV UD PRN; Protocol PRN Reason: CIWA score >/=15. Last Admin: 06/30/20 12:55 Dose: 2 mg Documented by: Nicotine (Nicotine 21 Mg Patch) 21 mg TD DAILY [facility] Last Admin: 07/01/20 09:05 Dose: 21 mg Documented by: Nutritional Formula (Lactose Free) (Ensure Enlive 120 Ml Liquid) 120 ml PO 4X/DAY [facility] Last Admin: 07/01/20 14:49 Dose: 120 ml Documented by: Ondansetron HCl (Ondansetron 8 Mg Tablet) 8 mg PO Q8H PRN PRN PRN Reason: NAUSEA Last Admin: 06/30/20 03:10 Dose: 8 mg Documented by: Ondansetron HCl (Ondansetron 4 Mg/2 Ml Vial) 4 mg IV Q4H PRN PRN PRN Reason: NAUSEA Last Admin: 06/30/20 09:55 Dose: 4 mg Documented by: Pantoprazole Sodium (Pantoprazole Sodium 40 Mg Tablet) 40 mg PO BID [facility] Last Admin: 07/01/20 09:05 Dose: 40 mg Documented by: Phenobarbital (Phenobarbital 32.4 Mg Tablet) 64.8 mg PO Q4H [facility]; Taper Stop: 07/04/20 06:29 Last Admin: 07/01/20 14:49 Dose: 64.8 mg Documented by: Sodium Chloride (0.9% Saline Lock 10 Ml Syringe) 10 - 40 ml IV UD PRN PRN Reason: SALINE FLUSH Last Admin: 07/01/20 00:33 Dose: 10 ml Documented by: Thiamine HCl (Thiamine Hydrochloride 100 Mg Tablet) 100 mg PO DAILYCM [facility] Last Admin: 07/01/20 09:05 Dose: 100 mg Documented by: Trazodone HCl (Trazodone 100 Mg Tablet) 100 mg PO QHS PRN PRN Reason: INSOMNIA Last Admin: 07/01/20 00:15 Dose: 100 mg Documented by: Assessment/Plan Patient seen by Jimena ALVARADO under my supervision Patient seen and examined. He has no complaints today. He denies any tremors or abdominal cramps or increased sweating. Review of systems otherwise negative. O/E: Vital Signs Temp Pulse Resp BP Pulse Ox 98.2 F 87 18 113/81 H 98 07/01/20 09:00 07/01/20 09:00 07/01/20 09:00 07/01/20 09:00 07/01/20 09:00 General: Alert, Oriented x3, Cooperative HEENT: Atraumatic, PERRLA, EOMI, Normocephalic Neck: Supple, No JVD, Negative Carotid Bruits Lungs: Clear to auscultation, Normal air movement Cardiovascular: Regular rate, No murmurs Abdomen: Bowel Sounds Present, Soft, Non Tender Extremities: No edema, Capillary Refill Less than 3 Seconds Skin: No rashes, No breakdown Musculoskeletal: No Tenderness to Palpation of Joints or Extremities Neurological: Cranial nerves II-XII grossly intact Psych/Mental Status: Normal Affect, Appropriate Plan is to continue alcohol withdrawal protocol with phenobarbital. Monitor CIWA score. Continue with folic acid, Multivite and thiamine supplementation. Patient plans to go to an inpatient rehab facility in [place] for discharge. Case management on board. Encourage ambulation for DVT prophylaxis as he is low risk. Rest as per Jimena FONTENOTC's note, which I reviewed and endorsed. Inpatient E&M: 56922 Subs Hosp L2
[2020-07-01] MEDS: hydrOXYzine PAM 25 MG Capsule 50 MG PO ×2 (14:51→23:22)
[2020-07-01 15:18] VITALS: BP 115/84; PULSE 85; RESP 18; TEMP 37; O2SAT 98
--- NOTE | 2020-07-01 16:37 | CHAPLAIN ---
Type of Pastoral Visit _x__ Initial Visit ___ Follow-up Visit ___ On-call Visit ___ General Patient Visit ___ Spiritual Assessment ___ Family Conference ___ Bereavement ___ Rapid Response ___ Code Blue ___ Other (describe below) Pastoral Care Referral From _x__ Patient ___ Family ___ Nurse ___ Physician ___ Protective Signal Repairer Helper ___ Clinical Research Spec ___ Other (describe below) Sacrament/Intervention _x__ Active listening ___ Anointing ___ Adventist ___ Bereavement ___ Communion _x__ [place]a exploration ___ _x__ Life review _x__ Prayer ___ Reconciliation ___ Sacrament of Sick _x__ Supportive presence ___ Wedding ___ Other (describe below) Pastoral Comments patient is alert and sits up to talk with this perfect bind machine operator; pt gives life review including break up of marriage and inability to see his children; pt has lost his job and is unable to pay his rent now, although he states I was an alcoholic before that; pt has some friends for support; pt reports of past active involvement in the [employer] and need to have God in my life again; patient would like a Bible which is given to him; pt welcomes prayer and presence of this perfect bind machine operator for spiritual and emotional support; pt plans to enter residential treatment for further progress on recovery
[2020-07-01 23:05] VITALS: BP 127/78; PULSE 98; RESP 16; TEMP 36.7; O2SAT 96
[2020-07-02 02:27] VITALS: BP 113/65; PULSE 97; RESP 16; TEMP 36.9; O2SAT 95
[2020-07-02] MEDS: Phenobarbital 32.4 MG Tablet 64.8 MG PO ×2 (02:28→05:46)
--- NOTE | 2020-07-02 06:28 | DCINST_ITS ---
- Discharge Diagnoses Current Active Problems: Current Active and Chronic Problems Impending alcohol withdrawal (Acute) Acute alcohol intoxication (Acute) Anxiety (Chronic) Tobacco abuse (Chronic) Alcohol abuse (Chronic) You will use the following diet at home:: No restrictions Discharge Activity: Return to Normal Activity Call your doctor if you observe: Shortness of breath, Dizziness, Fainting spells, Chest pain Allergies/Adverse Reactions: Allergies No Known Allergies Allergy (Verified 06/29/20 18:52) Medications to take at Discharge Ondansetron [Zofran Odt] 4 mg PO 4X/DAY PRN PRN 06/29/20 Pantoprazole Sodium [Protonix] 40 mg PO DAILY 06/29/20 Primary Care Physician: Tito Blair,Out of [NON-STAFF] - Please follow up with your Primary Care Physician in: 1 Week Test Results: Test results from this visit will be discussed in further detail at your follow- up appointment, if applicable. Proposed Discharge Date: 07/02/20
--- NOTE | 2020-07-02 06:30 | DS.PCM_ITS ---
<Jimena Lundy BODS DEVELOPER - Last Filed: 07/02/20 06:33> Discharge Date and Diagnosis - Problem List Patient Problems: Active and Suspected Problems Impending alcohol withdrawal (Acute) Acute alcohol intoxication (Acute) Date of Admission: 06/29/20 Date of Discharge: 07/02/20 - Primary Discharge Diagnosis Acute Problems: Active Problems 1. Acute alcohol withdrawal, chronic alcohol dependence 2. Tobacco dependence 3. Anxiety/depression 4. GERD - Secondary Discharge Diagnosis Chronic Problems: Chronic Problems Anxiety (Chronic) Tobacco abuse (Chronic) Alcohol abuse (Chronic) Hospital Course and Treatment [facility] Operations: None Procedures: None Summary of Care Provided: The patient is a 40 year old M admitted 06/29/20 requesting alcohol detox. 1. Acute alcohol withdrawal, chronic alcohol dependence-medical stabilization per protocol. Phenobarbital taper during admission. As needed regimen for somatic complaints. Thiamine, folic acid, multivitamin supplementation. [facility] consulted. Plan for discharge home with return on Sunday07/05/20 for residential treatment. Patient has arranged at [facility] however states he is looking into places closer to his residence. 2. Tobacco dependence-encouraged cessation. Nicotine replacement patch. 3. Anxiety/depression-not on regimen, outpatient follow-up. 4. GERD-continue PPI. General: Alert, Oriented x3, Cooperative HEENT: Atraumatic, PERRLA, EOMI, Normocephalic Neck: Supple, No JVD, Negative Carotid Bruits Lungs: Clear to auscultation, Normal air movement Cardiovascular: Regular rate, No murmurs Abdomen: Bowel Sounds Present, Soft, Non Tender, Non-Distended Extremities: No clubbing, No cyanosis, No edema, Capillary Refill Less than 3 Seconds Skin: No rashes, No breakdown Musculoskeletal: No Tenderness to Palpation of Joints or Extremities Neurological: Cranial nerves II-XII grossly intact, Neuro grossly intact Psych/Mental Status: Normal Affect, Appropriate Patient seen and examined prior to discharge. Physical assessment as noted above. Patient is stable for discharge with follow up recommendations as noted above. This patient was seen by CORIE RemyC under the supervision of Dr. Green. Patient Problems: Active and Suspected Problems Impending alcohol withdrawal (Acute) Acute alcohol intoxication (Acute) - Physical Exam Vitals/I&O's: Vital Signs Temp Pulse Resp BP Pulse Ox 98.4 F 97 16 113/65 95 04/09/21 02:27 07/02/20 02:27 07/02/20 02:27 07/02/20 02:27 07/02/20 02:27 Oxygen Delivery Method Room Air Weight: 188 lb 14.978 oz Body Mass Index (BMI) 24.9 Intake and Output for Last 24 Hours 06/30/20 07/01/20 07/02/20 23:59 23:59 23:59 Intake Total 2300 / 2300 1700 / 1700 950 / 950 Balance 2300 / 2300 1700 / 1700 950 / 950 Current Medications Acetaminophen (Acetaminophen 500 Mg Tablet) 500 mg PO Q4H PRN PRN PRN Reason: Temp > 100.4 F Dicyclomine HCl (Dicyclomine 10 Mg Capsule) 20 mg PO Q6H PRN PRN PRN Reason: abdominal discomfort Folic Acid (Folic Acid 1 Mg Tablet) 1 mg PO DAILY@0800 [facility] Last Admin: 07/01/20 09:05 Dose: 1 mg Documented by: Gabapentin (Gabapentin 300 Mg Capsule) 300 mg PO Q8H PRN PRN PRN Reason: moderate to severe anxiety Hydroxyzine Pamoate (Hydroxyzine Benita 25 Mg Capsule) 50 mg PO Q4H PRN PRN PRN Reason: mild anxiety Last Admin: 07/01/20 23:22 Dose: 50 mg Documented by: Loperamide HCl (Loperamide 2 Mg Capsule) 2 mg PO Q4H PRN PRN PRN Reason: LOOSE STOOLS Lorazepam (Lorazepam 1 Mg Tablet) 2 mg PO Q2H PRN PRN; Protocol PRN Reason: CIWA score > 8 but <15 Lorazepam (Lorazepam 1 Mg Tablet) 2 mg PO UD PRN; Protocol PRN Reason: CIWA score >/=15. Lorazepam (Lorazepam 2 Mg/Ml Syringe) 2 mg IV Q2H PRN PRN; Protocol PRN Reason: CIWA score > 8 but <15 Lorazepam (Lorazepam 2 Mg/Ml Syringe) 2 mg IV UD PRN; Protocol PRN Reason: CIWA score >/=15. Last Admin: 06/30/20 12:55 Dose: 2 mg Documented by: Nicotine (Nicotine 21 Mg Patch) 21 mg TD DAILY [facility] Last Admin: 07/01/20 09:05 Dose: 21 mg Documented by: Nutritional Formula (Lactose Free) (Ensure Enlive 120 Ml Liquid) 120 ml PO 4X/DAY [facility] Last Admin: 07/01/20 23:02 Dose: 120 ml Documented by: Ondansetron HCl (Ondansetron 8 Mg Tablet) 8 mg PO Q8H PRN PRN PRN Reason: NAUSEA Last Admin: 06/30/20 03:10 Dose: 8 mg Documented by: Ondansetron HCl (Ondansetron 4 Mg/2 Ml Vial) 4 mg IV Q4H PRN PRN PRN Reason: NAUSEA Last Admin: 06/30/20 09:55 Dose: 4 mg Documented by: Pantoprazole Sodium (Pantoprazole Sodium 40 Mg Tablet) 40 mg PO BID [facility] Last Admin: 07/01/20 23:03 Dose: 40 mg Documented by: Phenobarbital (Phenobarbital 32.4 Mg Tablet) 64.8 mg PO Q6H [facility]; Taper Stop: 07/04/20 06:29 Last Admin: 07/02/20 05:46 Dose: 64.8 mg Documented by: Sodium Chloride (0.9% Saline Lock 10 Ml Syringe) 10 - 40 ml IV UD PRN PRN Reason: SALINE FLUSH Last Admin: 07/01/20 00:33 Dose: 10 ml Documented by: Thiamine HCl (Thiamine Hydrochloride 100 Mg Tablet) 100 mg PO DAILYCM [facility] Last Admin: 07/01/20 09:05 Dose: 100 mg Documented by: Trazodone HCl (Trazodone 100 Mg Tablet) 100 mg PO QHS PRN PRN Reason: INSOMNIA Last Admin: 07/01/20 23:47 Dose: 100 mg Documented by: Discharge Diet: No Restrictions Discharge Activity: Return to Normal Activity Call your doctor if you observe: Shortness of breath, Dizziness, Fainting spells, Chest pain Home Medications: Medications to take at Discharge Ondansetron [Zofran Odt] 4 mg PO 4X/DAY PRN PRN 06/29/20 Pantoprazole Sodium [Protonix] 40 mg PO DAILY 06/29/20 Primary Care Physician: Tito Doctor,Out of [NON-STAFF] - Please follow up with your Primary Care Physician in: 1 Week Disposition: Home Minutes spent on discharge:: 35 Patient Condition:: Stable Medical Necessity - Tobacco Use Smoking Status: Current every day smoker Tobacco Use: Cigarettes Meaningful Use Info Meaningful Use Diagnoses (Choose all that apply): None applicable <Miguelina Green - Last Filed: 07/02/20 14:23> Discharge Date and Diagnosis - Primary Discharge Diagnosis Acute Problems: Active Problems Impending alcohol withdrawal (Acute) Acute alcohol intoxication (Acute) - Secondary Discharge Diagnosis Chronic Problems: Chronic Problems Anxiety (Chronic) Tobacco abuse (Chronic) Alcohol abuse (Chronic) Hospital Course and Treatment Summary of Care Provided: Patient seen by Jimena ALVARADO under my supervision The patient is a 40 year old M with a past medical history as outlined was admitted through the ED on 06/29/2020 with for acute alcohol withdrawal. Patient had been drinking heavily for a few days prior to admission and states he drank about 1/5 of vodka daily. He had assisted nausea and vomiting. Review of symptoms otherwise negative. He was admitted to be managed for acute alcohol withdrawal. He was started on alcohol withdrawal protocol with phenobarbital. Patient tolerated 3-day detox process. He was discharged home on 07/02/2020. He wishes to follow-up on outpatient basis with a rehab facility to plan for inpatient rehab. Of note, he also had nicotine dependence and was counseled to quit and receive nicotine replacement patch during admission. Patient seen and examined prior to discharge. He had no complaints. Review systems otherwise negative. Labs and vitals reviewed. Home medication reviewed and reconciled. O/E: Vital Signs Temp Pulse Resp BP Pulse Ox 97.6 F L 97 16 130/90 H 98 07/02/20 10:04 07/02/20 10:04 07/02/20 10:04 07/02/20 10:04 07/02/20 10:04 [] General: Alert, Oriented x3, Cooperative HEENT: Atraumatic, PERRLA, EOMI, Normocephalic Neck: Supple, No JVD, Negative Carotid Bruits Lungs: Clear to auscultation, Normal air movement Cardiovascular: Regular rate, No murmurs Abdomen: Bowel Sounds Present, Soft, Non Tender Extremities: No edema, Capillary Refill Less than 3 Seconds Skin: No rashes, No breakdown Musculoskeletal: No Tenderness to Palpation of Joints or Extremities Neurological: Cranial nerves II-XII grossly intact Psych/Mental Status: Normal Affect, Appropriate Plan is for discharge home today. Rest as per Jimena ALVARADO's note, which I have reviewed and endorsed. - Physical Exam Vitals/I&O's: Vital Signs Temp Pulse Resp BP Pulse Ox 97.6 F L 97 16 130/90 H 98 07/02/20 10:04 07/02/20 10:04 07/02/20 10:04 07/02/20 10:04 07/02/20 10:04 Oxygen Delivery Method Room Air Weight: 188 lb 14.978 oz Body Mass Index (BMI) 24.9 Intake and Output for Last 24 Hours 06/30/20 07/01/20 07/02/20 23:59 23:59 23:59 Intake Total 2300 / 2300 1700 / 1700 950 / 950 Balance 2300 / 2300 1700 / 1700 950 / 950 Inpatient E&M: 47155 Disch Hosp
[2020-07-02] MEDS: Folic Acid 1 MG Tablet PO (09:06)
[2020-07-02] MEDS: Thiamine Hydrochloride 100 MG Tablet PO (09:06)
[2020-07-02] MEDS: Pantoprazole Sodium 40 MG Tablet PO (09:07)
--- NOTE | 2020-07-02 09:46 | CASEMGMT ---
Social Work Note DANII received message from pt's SW through [facility] ([phone]) requesting update on pt's discharge plans. DANII placed a call back to Abida and updated her pt will be discharged home today with plans to direct admit to residential Sunday. Abida states understanding. Marsha Nicole MANAGER BILINGUAL, MEMBER SERVICE REPRESENTATIVE
[2020-07-02 10:03] VITALS: BP 130/30; PULSE 97; RESP 16; TEMP 36.4; O2SAT 98
[2020-07-02 10:04] VITALS: BP 130/90; PULSE 97; RESP 16; TEMP 36.4; O2SAT 98
== END 2020-07-02 12:16 | disposition home or self-care (01) | DRG 775 ==
LOC: ED 19:56 → MS3 22:02
PROVIDERS: Admitting Provider Hospitalist; Emergency Provider Student in an Organized Health Care Education/Training Program; Visit Provider Student in an Organized Health Care Education/Training Program
DX: F10.239 Alcohol dependence with withdrawal, unspecified (principal); F10.229 Alcohol dependence with intoxication, unspecified; K21.9 Gastro-esophageal reflux disease without esophagitis; F17.210 Nicotine dependence, cigarettes, uncomplicated; E87.6 Hypokalemia; R74.8 Abnormal levels of other serum enzymes
CPT/HCPCS: 36415; 80053; 80307; 82077; 83690; 83735; 85025; 93005; 99284; 99406; J7030; A4216; J2405

== ENCOUNTER 2020-10-10 11:14 | Inpatient (IN) | payer MEDICAID, SELFPAY ==
[2020-06-29 22:14] VITALS: BMI 24.9
[2020-10-10 11:14] VITALS: BP 133/90; PULSE 111; RESP 18; TEMP 36.2; O2SAT 93; BMI 24.4
--- NOTE | 2020-10-10 11:47 | EX.ED.SAOD ---
HPI History of Present Illness Chief Complaint: ETOH Intox Informant: patient Narrative Narrative: Patient presents with interest in alcohol detox. He has a long history of alcohol use. He drinks about 12 beers a day. When he does not drink he gets nauseated and anxious and starts shaking. He last drank about an hour or 2 ago. He thinks he has depression but denies any formal treatment. He is not suicidal. He started drinking again over the last 2 or so weeks. He had previously been dry for about 60 to 90 days. Nothing makes his symptoms better other than detox. Life stress and girlfriends make it worse. PFSH PFSH Medical History Alcohol abuse Home Medications ondansetron 4 mg PO 4X/DAY PRN PRN 06/29/20 [History Last Taken 06/29/20 12:00] pantoprazole 40 mg PO DAILY 06/29/20 [History Last Taken 06/28/20 12:00] Allergy/AdvReac Type Severity Reaction Status Date / Time No Known Allergies Allergy Verified 10/10/20 11:16 Social History Smoking Status: Current every day smoker tobacco type: cigarettes ROS ROS ED ROS Narrative It sometimes takes multiple questions to get details from the patient. He sometimes answers questions that I do not ask. Constitutional Constitutional ED: Denies chills or fever(s) Eyes Eyes: Denies change in vision ENT ENT ED: Denies rhinorrhea or sore throat Cardiovascular Cardiovascular: Denies chest pain or palpitations Respiratory/Chest Respiratory/Chest: Denies cough or dyspnea Gastrointestinal Gastrointestinal: Denies abdominal pain or melena Genitourinary Genitourinary ED: Denies dysuria Musculoskeletal Musculoskeletal: Denies myalgias Integumentary Denies rash Neurologic Neurologic: Denies headache(s) Psychiatric Psychiatric: Reports anxiety and depression; Denies suicidal ideation or suicidal thoughts Endocrine Endocrinology: Denies polyuria Hematologic/Lymphatic Hematologic/Lymphatic: Denies easy bruising EXAM Physical Exam Const Vital Signs: 10/10/20 11:14 Temperature 97.1 F L Temperature Source Temporal Pulse Rate 111 H Respiratory Rate 18 Blood Pressure 133/90 H Blood Pressure Mean 104 Pulse Ox 93 Oxygen Delivery Method Room Air Positive well nourished and well developed General Appearance ED: well developed HEENT Reports moist mucous membranes atraumatic; Negative for trauma or tenderness Eyes PERRL Eyes Narrative: Bilateral conjunctival injection mild General Eye ED: Negative for scleral icterus Neck no lymphadenopathy and supple Chest Wall inspection of chest normal and palpation of chest normal Resp normal respiratory effort and clear to auscultation bilaterally Cardio regular rhythm Rate: tachycardic GI soft to palpation and non-tender Back/Spine no CVA tenderness Extremity General Extremety ED: Negative for edema or tenderness General Extremity: Negative for edema Neuro oriented x3 Neuro Narrative: There is no confusion. No sign of hallucinations. Sensorium / Orientation: alert Psych mental status grossly normal Skin Rashes: no rashes MDM MDM MDM Narrative Medical decision making narrative: Patient's labs do show a slight bump in his liver function test. However, he is not having any abdominal symptoms or tenderness. His alcohol level is quite high for only having 2 or 3 beers this morning. Patient is rechecked. He is resting quietly. He is not showing signs of withdrawal at this time but I think this patient is likely very high risk for withdrawal symptoms. I discussed the case with Dr. Aguilar and the patient will be admitted. Lab Data Attestation: I reviewed the patient's lab results. Labs: Laboratory Results - last 24 hr 10/10/20 10/10/20 10/10/20 11:50 11:50 11:50 WBC 3.7 L RBC 4.88 Hgb 14.6 Hct 43.3 MCV 88.7 MCH 29.9 MCHC 33.7 RDW Std Deviation 38.5 RDW Coeff of Cesar 11.9 Plt Count 173 MPV 10.7 Immature Gran % (Auto) 0.500 Neut % (Auto) 65.7 Lymph % (Auto) 15.1 L [place] % (Auto) 16.8 H Eos % (Auto) 1.4 Baso % (Auto) 0.5 Absolute Neuts (auto) 2.4 Absolute Lymphs (auto) 0.56 L Nucleated RBC % 0 Diff Path Review May foll Platelet Estimate ADEQUATE RBC Morphology NORM C+C Sodium 131 L Potassium 3.6 Chloride 91 L Carbon Dioxide 27.0 Anion Gap 13 BUN 6 L Creatinine 0.82 Estim Creat Clear Calc 135.33 Est GFR (MDRD) Af Amer 133 Est GFR (MDRD) Non-Af 110 BUN/Creatinine Ratio 7.3 L Glucose 107 H Calcium 8.8 Total Bilirubin 0.70 AST 170 H ALT 274 H Alkaline Phosphatase 122 H Total Protein 7.8 Albumin 4.4 Globulin 3.4 Albumin/Globulin Ratio 1.3 Urine Opiates Screen Urine Methadone Screen Ur Barbiturates Screen Ur Phencyclidine Scrn Ur Amphetamines Screen U Methamphetamin-MDMA U Benzodiazepines Scrn Urine Cocaine Screen U Cannabinoids Screen Ur Drug Screen Comment Ethyl Alcohol 429.0 H* 10/10/20 12:30 WBC RBC Hgb Hct MCV MCH MCHC RDW Std Deviation RDW Coeff of Cesar Plt Count MPV Immature Gran % (Auto) Neut % (Auto) Lymph % (Auto) [place] % (Auto) Eos % (Auto) Baso % (Auto) Absolute Neuts (auto) Absolute Lymphs (auto) Nucleated RBC % Diff Path Review Platelet Estimate RBC Morphology Sodium Potassium Chloride Carbon Dioxide Anion Gap BUN Creatinine Estim Creat Clear Calc Est GFR (MDRD) Af Amer Est GFR (MDRD) Non-Af BUN/Creatinine Ratio Glucose Calcium Total Bilirubin AST ALT Alkaline Phosphatase Total Protein Albumin Globulin Albumin/Globulin Ratio Urine Opiates Screen NEGATIVE Urine Methadone Screen NEGATIVE Ur Barbiturates Screen NEGATIVE Ur Phencyclidine Scrn NEGATIVE Ur Amphetamines Screen NEGATIVE U Methamphetamin-MDMA NEGATIVE U Benzodiazepines Scrn NEGATIVE Urine Cocaine Screen NEGATIVE U Cannabinoids Screen NEGATIVE Ur Drug Screen Comment Ethyl Alcohol Discharge Plan Dx/Rx/DC Orders Clinical Impression: Alcohol abuse, Acute alcohol intoxication Disposition Disposition: Acute Care Hospital [facility]
[2020-10-10 12:00] LABS: Absolute Lymphocyte Count 0.56 X10^3/uL (0.83-4.51); Absolute Neutrophil Count 2.4 X10^3/uL (2.0-7.7); Basophil# 0.02 X10^3/uL; Basophil% 0.5 % (0-1); Eosinophil# 0.05 X10^3/uL; Eosinophils% 1.4 % (0-5); Hematocrit 43.3 % (40-54); Hemoglobin 14.6 g/dL (13.0-16.5); Lymphocyte # 0.56 X10^3/ul (0.83-4.51); Lymphocyte % 15.1 % (19-41); Mean Corp Hgb Conc 33.7 g/dL (32-36); Mean Corpuscular Hgb 29.9 pg (27.0-32.0); Mean Corpuscular Volume 88.7 fL (80-94); Mean Platelet Vol. 10.7 fl (6.2-12.0); Monocyte# 0.62 X10^3/uL; Monocyte% 16.8 % (0-10); NRBC Flagged by Analyzer 0 % (0-5); Neutrophil # 2.43 X10^3/uL (2.7-7.7); Neutrophil % 65.7 % (47-70); POSITIVE DIFFERENTIAL YES; Platelet Count 173 K/mm3 (150-450); RBC Distribution Width CV 11.9 % (11.6-14.6); RBC Distribution Width SD 38.5 fl (35.1-43.9); Red Blood Count 4.88 M/mm3 (4.6-6.2); White Blood Count 3.7 K/mm3 (4.4-11.0)
[2020-10-10] MEDS: LORazepam 1 MG Tablet PO (12:03)
[2020-10-10 12:04] LABS: Differential Indicated SCAN CRITERIA MET
[2020-10-10 12:31] LABS: ALB/GLOB Ratio 1.3 RATIO (0.9-2.4); AST(SGOT) 170 U/L (15-37); Alanine Aminotransfer ALT/SGPT 274 U/L (16-61); Albumin, Serum 4.4 g/dL (3.2-5.0); Alkaline Phosphatase 122 U/L (45-117); Anion Gap 13 (5-15); BUN 6 mg/dL (7-18); BUN/Creat Ratio 7.3 RATIO (10-20); Calcium,Total 8.8 mg/dL (8.5-10.1); Chloride 91 mmol/L (98-107); Creatinine, Serum 0.82 mg/dL (0.70-1.30); EST Glomerular Filtration Rate 110 mL/min (>60); Est Glom Filt Rate - Afr Amer 133 mL/min (>60); Estimated Creatinine Clearance 135.33 ml/min; Globulin 3.4 g/dL (2.2-4.2); Glucose 107 mg/dL (74-106); Potassium 3.6 mmol/L (3.5-5.1); Protein, Total 7.8 g/dL (6.4-8.2); Sodium Level 131 mmol/L (136-145)
[2020-10-10 12:49] LABS: Amphetamine Urine VISTA NEGATIVE (<1000 ng/mL); Barbiturate Urine VISTA NEGATIVE (< 200 ng/mL); Benzodiazepine Urine VISTA NEGATIVE (< 200 ng/mL); Cocaine Urine VISTA NEGATIVE (< 300 ng/mL); Ecstacy Urine VISTA NEGATIVE (< 500 ng/mL); Methadone Urine VISTA NEGATIVE (< 300 ng/mL); PCP Urine VISTA NEGATIVE (< 25 ng/mL); THC Urine VISTA NEGATIVE (< 50 ng/mL); Vista UDS pH Range 7
[2020-10-10 12:50] LABS: Platelet Estimate ADEQUATE (ADEQ); Red Cell Morphology NORM C+C NORMAL (NORM C&C)
--- NOTE | 2020-10-10 13:31 | PCM.HP.STD ---
HPI - General General Date of Admission: 10/10/20 Date of Service: 10/10/20 Chief Complaint: EtOH withdrawal HPI Narrative The patient is a 40 y/o M w/ PMHx: Anxiety and Depression, EtOH abuse (12 beers daily), Tobacco use who presents to the [facility] ED on 10/10/20 w/ noted acute EtOH withdrawal, onset starting on day of ED presentation following last EtOH intake ~ 2-3 hours prior to arrival with onset of nausea, tremors, agitation, tactile disturbances prompting attempt for detoxification. He was sober for the several months but has recently been unable to secure living situation secondary to his EtOH abuse. He notes that he recently split up with his girlfriend and is heartbroken, likely with increased alcohol intake reporting not just beer recently but some hard liquor although reporting last usage of hard liquor in addition was perhaps 1 week prior to current presentation. Work ED included T 97.1, heart rate 111, BP 133/90, respiratory rate 18, 93% room air, CBC with WBC 3.7, hemoglobin 14.6, platelet 173 with lymphopenia, CMP with sodium 131, chloride 91, BUN/creatinine 6/0.82, glucose 107, AST/ALT 170/274, alk phos 122 otherwise hepatic profile unremarkable, UDS negative, EtOH 429. In the ED patient administered nicotine patch as well as Ativan 1 mg p.o. x1. [facility] Medical History (Updated 10/10/20 @ 14:[address] Nichole Aguilar MD) Alcohol abuse Anxiety GERD (gastroesophageal reflux disease) Home Medications pantoprazole 40 mg PO DAILY 06/29/20 [History Last Taken 06/28/20 12:00] Allergy/AdvReac Type Severity Reaction Status Date / Time No Known Allergies Allergy Verified 10/10/20 11:16 Family History (Updated 10/10/20 @ 14:[address] Nichole Aguilar MD) Father Alcohol abuse no significant family history (Patient denies any marked maternal family history including HD, DM, CA. Notes she takes no medications.) no surgical history Social History (Updated 10/10/20 @ 14:[address] Nichole Aguilar MD) housing: homeless Smoking Status: Current every day smoker tobacco type: cigarettes and e-cigarettes alcohol intake: current Alcohol type: beer and hard liquor details: Patient drinks at least 12, 12 ounce beers daily, occasional Hard Liquor. substance use type: does not use ROS ROS Narrative Admission Review of Systems: CONSTITUTIONAL: No weight loss, fever, chills, + weakness or fatigue. HEENT: Eyes: No visual loss, blurred vision, double vision or yellow sclerae. Ears, Nose, Throat: No hearing loss, sneezing, congestion, runny nose or sore throat. SKIN: No rash or itching, lesions, wounds. CARDIOVASCULAR: No chest pain, chest pressure or chest discomfort, palpitations, edema, orthopnea, syncopal events. RESPIRATORY: No shortness of breath, cough or sputum, wheezing, hemoptysis. GASTROINTESTINAL: + anorexia, nausea, No vomiting or diarrhea, abdominal pain, melena, BRBPR. GENITOURINARY: No dysuria, frequency, urgency or retention. NEUROLOGICAL: + Tremors, tactile disturbances. No headache, dizziness, syncope, paralysis, ataxia, focal weakness, change in bowel or bladder control, seizure. MUSCULOSKELETAL: + muscle, back pain, joint pain or stiffness. HEMATOLOGIC: No anemia, bleeding or bruising. LYMPHATICS: No enlarged nodes. No history of splenectomy. PSYCHIATRIC: + history of depression or anxiety. ENDOCRINOLOGIC: No reports of sweating, cold or heat intolerance. No polyuria or polydipsia. ALLERGIES: No history of asthma, hives, eczema or rhinitis. Vital Signs Vital Signs Vital Signs: 10/10/20 11:14 Temperature 97.1 F L Temperature Source Temporal Pulse Rate 111 H Respiratory Rate 18 Blood Pressure 133/90 H Blood Pressure Mean 104 Pulse Ox 93 Oxygen Delivery Method Room Air Weight Weight: 185 lb 3.013 oz Body Mass Index (BMI) 24.4 Physical Exam Narrative Physical Examination: General: Awake, alert, oriented x 3 and cooperative, laying in the ED bed, fatigued, mildly restless, mildly tremulous. Skin: Normal color, normal turgor, no icterus, no cyanosis. HEENT: AT/NC, EOMI, PERRLA, dry MM, no carotid bruits or JVD noted. Lungs: CTA bilaterally, moderate effort, no rales, ronchi or wheezing. Heart: Mildly tachycardic with regular rhythm; no gallop, rub audible. Abdomen: Soft, NTTP including right upper quadrant, ND, distant normal BS, mild HM. Extremities: No cyanosis, clubbing, or edema. Neurological: Patient awake, alert, oriented as noted, cognitive function intact; pupils equally reactive to light and accommodation, cranial nerves II-XII grossly normal, moving all 4 extremities, no focal deficits, strength mildly global decreased, mild tremors, mild agitation. Psychiatric: Affect appears restless, mildly agitated, no acute evidence of depressive or anxiety feelings. Results Lab / Micro Data Result Diagrams: 10/10/20 11:50 10/10/20 11:50 Labs: Laboratory Results - last 24 hr 10/10/20 11:50: WBC 3.7 L, RBC 4.88, Hgb 14.6, Hct 43.3, MCV 88.7, MCH 29.9, MCHC 33.7, RDW Std Deviation 38.5, RDW Coeff of Cesar 11.9, Plt Count 173, MPV 10.7, Immature Gran % (Auto) 0.500, Neut % (Auto) 65.7, Lymph % (Auto) 15.1 L, [place] % (Auto) 16.8 H, Eos % (Auto) 1.4, Baso % (Auto) 0.5, Absolute Neuts (auto) 2.4, Absolute Lymphs (auto) 0.56 L, Nucleated RBC % 0, Diff Path Review May foll, Platelet Estimate ADEQUATE, RBC Morphology NORM C+C 10/10/20 11:50: Sodium 131 L, Potassium 3.6, Chloride 91 L, Carbon Dioxide 27.0, Anion Gap 13, BUN 6 L, Creatinine 0.82, Estim Creat Clear Calc 135.33, Est GFR (MDRD) Af Amer 133, Est GFR (MDRD) Non-Af 110, BUN/Creatinine Ratio 7.3 L, Glucose 107 H, Calcium 8.8, Total Bilirubin 0.70, AST 170 H, ALT 274 H, Alkaline Phosphatase 122 H, Total Protein 7.8, Albumin 4.4, Globulin 3.4, Albumin/Globulin Ratio 1.3 10/10/20 11:50: Ethyl Alcohol 429.0 H* 10/10/20 12:30: Urine Opiates Screen NEGATIVE, Urine Methadone Screen NEGATIVE, Ur Barbiturates Screen NEGATIVE, Ur Phencyclidine Scrn NEGATIVE, Ur Amphetamines Screen NEGATIVE, U Methamphetamin-MDMA NEGATIVE, U Benzodiazepines Scrn NEGATIVE, Urine Cocaine Screen NEGATIVE, U Cannabinoids Screen NEGATIVE, Ur Drug Screen Comment Assessment & Plan Assessment/Plan (1) Alcohol withdrawal: QUALIFIERS: Complication of substance-induced condition: uncomplicated Qualified Code(s): F10.230 - Alcohol dependence with withdrawal, uncomplicated PLAN: The patient is a 40 y/o M w/ PMHx: Anxiety and Depression, EtOH abuse (12 beers daily), Tobacco use who presents to the [facility] ED on 10/10/20 w/ noted acute EtOH withdrawal, onset starting on day of ED presentation following last EtOH intake ~ 2-3 hours prior to arrival with onset of nausea, tremors, agitation, tactile disturbances prompting attempt for detoxification. 1. Acute EtOH Withdrawal with chronic LFT elevations: Will admit to SD, routine labs obtained in the ED upon presentation and notable for chronic LFT elevations. Given interest in sobriety, will initiate and continue on protocol with taper course of Phenobarbital, scheduled gabapentin for seizure prophylaxis, as needed Catapres, Bentyl, Vistaril, IV fluids, IV antiemetics, Tylenol as needed for pain. Will consult Case management for assistance for transition to next level of rehabilitation care. Mag, phos pending. Maintain on CIWA protocol concurrently. Repeat CMP in AM to re-assess LFTs. 2. Anxiety and depression: Patient not on any regimen, underlying history with evident acute ongoing current issues, would benefit strongly from counseling with alcohol withdrawal treatment following transition from acute phase. 3. Tobacco Abuse: Encouraged cessation, inpatient consultation per RT, NR if desired. 4. GERD: Will continue home PPI. 5. DVT prophylaxis: Low risk, encourage ambulation. Charges/Coding Visit Charges Inpatient E&M: 78834 Init Hosp L3
--- NOTE | 2020-10-10 13:43 | NURSING ---
318 WHITE ALCOHOL DETOX
[2020-10-10 13:51] VITALS: BP 148/94; PULSE 93; RESP 16; TEMP 36.8; O2SAT 92
[2020-10-10 13:59] LABS: Magnesium 2.2 mg/dL (1.6-2.6)
[2020-10-10 14:12] VITALS: BMI 23.0
[2020-10-10 14:13] VITALS: BP 146/98; PULSE 101; RESP 18; TEMP 36.9; O2SAT 98
[2020-10-10] MEDS: Multivitamins,Therapeutic Tablet 1 TABLET PO (14:37)
[2020-10-10] MEDS: Pantoprazole Sodium 40 MG Tablet PO (14:37)
[2020-10-10] MEDS: Phenobarbital 32.4 MG Tablet 64.8 MG PO ×3 (14:37→22:27)
[2020-10-10] MEDS: Lactated Ringers 1,000 ML 125 ML IV (14:38)
[2020-10-10 14:41] VITALS: BP 137/90; PULSE 80; RESP 18; TEMP 36.4; O2SAT 99
[2020-10-10 18:37] VITALS: BP 134/70; PULSE 74; RESP 18; TEMP 37.2; O2SAT 99
[2020-10-10] MEDS: hydrOXYzine PAM 25 MG Capsule 50 MG PO (21:33)
[2020-10-10 22:13] VITALS: BP 127/87; PULSE 106; RESP 18; TEMP 36.8; O2SAT 94
[2020-10-10] MEDS: traZODone 100 MG Tablet PO (22:27)
[2020-10-10] MEDS: Gabapentin 300 MG Capsule PO (22:27)
[2020-10-10] MEDS: Ibuprofen 600 MG Tablet PO (22:27)
[2020-10-11] VITALS (7 sets, daily range): BP systolic 114–127; BP diastolic 67–87; PULSE 85–103; RESP 16–18; TEMP 36.5–37.3; O2SAT 94–96
[2020-10-11] MEDS: hydrOXYzine PAM 25 MG Capsule 50 MG PO ×3 (02:47→22:41)
[2020-10-11] MEDS: Phenobarbital 32.4 MG Tablet 64.8 MG PO ×6 (02:47→22:41)
[2020-10-11] MEDS: Gabapentin 300 MG Capsule PO (06:25)
[2020-10-11 06:29] LABS: ALB/GLOB Ratio 1.3 RATIO (0.9-2.4); AST(SGOT) 122 U/L (15-37); Alanine Aminotransfer ALT/SGPT 215 U/L (16-61); Albumin, Serum 3.9 g/dL (3.2-5.0); Alkaline Phosphatase 105 U/L (45-117); Anion Gap 10 (5-15); BUN 9 mg/dL (7-18); Calcium,Total 8.7 mg/dL (8.5-10.1); Chloride 97 mmol/L (98-107); EST Glomerular Filtration Rate 99 mL/min (>60); Est Glom Filt Rate - Afr Amer 120 mL/min (>60); Estimated Creatinine Clearance 122.07 ml/min; Globulin 2.9 g/dL (2.2-4.2); Glucose 73 mg/dL (74-106); Protein, Total 6.8 g/dL (6.4-8.2); Sodium Level 134 mmol/L (136-145)
[2020-10-11] MEDS: Pantoprazole Sodium 40 MG Tablet PO (09:03)
[2020-10-11] MEDS: Multivitamins,Therapeutic Tablet 1 TABLET PO (09:03)
[2020-10-11] MEDS: Thiamine Hydrochloride 100 MG Tablet PO (09:03)
[2020-10-11] MEDS: Folic Acid 1 MG Tablet PO (09:03)
--- NOTE | 2020-10-11 10:21 | PCM.PN.HOSP ---
Subjective Subjective Patient was seen and examined. Denied any new complaints. No acute events overnight Objective Data Objective Data Vital Signs: Vital Signs Temp Pulse Resp BP Pulse Ox 99.1 F 99 18 115/75 94 10/11/20 09:12 10/11/20 09:12 10/11/20 09:12 10/11/20 09:12 10/11/20 09:12 Oxygen Delivery Method Room Air Weight: 79.1 kg Body Mass Index (BMI) 23.0 Intake & Output: Intake and Output for Last 24 Hours 10/09/20 10/10/20 10/11/20 23:59 23:59 23:59 Intake Total 1650 / 1650 Balance 1650 / 1650 Lab / Micro Data Result Diagrams: 10/10/20 11:50 10/11/20 05:54 Labs: Laboratory Results - last 24 hr 10/10/20 11:50: WBC 3.7 L, RBC 4.88, Hgb 14.6, Hct 43.3, MCV 88.7, MCH 29.9, MCHC 33.7, RDW Std Deviation 38.5, RDW Coeff of Cesar 11.9, Plt Count 173, MPV 10.7, Immature Gran % (Auto) 0.500, Neut % (Auto) 65.7, Lymph % (Auto) 15.1 L, [place] % (Auto) 16.8 H, Eos % (Auto) 1.4, Baso % (Auto) 0.5, Absolute Neuts (auto) 2.4, Absolute Lymphs (auto) 0.56 L, Nucleated RBC % 0, Diff Path Review July, Platelet Estimate ADEQUATE, RBC Morphology NORM C+C 10/10/20 11:50: Sodium 131 L, Potassium 3.6, Chloride 91 L, Carbon Dioxide 27.0, Anion Gap 13, BUN 6 L, Creatinine 0.82, Estim Creat Clear Calc 135.33, Est GFR (MDRD) Af Amer 133, Est GFR (MDRD) Non-Af 110, BUN/Creatinine Ratio 7.3 L, Glucose 107 H, Calcium 8.8, Total Bilirubin 0.70, AST 170 H, ALT 274 H, Alkaline Phosphatase 122 H, Total Protein 7.8, Albumin 4.4, Globulin 3.4, Albumin/Globulin Ratio 1.3 10/10/20 11:50: Ethyl Alcohol 429.0 H* 10/10/20 11:50: Phosphorus 3.0, Magnesium 2.2 10/10/20 12:30: Urine Opiates Screen NEGATIVE, Urine Methadone Screen NEGATIVE, Ur Barbiturates Screen NEGATIVE, Ur Phencyclidine Scrn NEGATIVE, Ur Amphetamines Screen NEGATIVE, U Methamphetamin-MDMA NEGATIVE, U Benzodiazepines Scrn NEGATIVE, Urine Cocaine Screen NEGATIVE, U Cannabinoids Screen NEGATIVE, Ur Drug Screen Comment 10/11/20 05:54: Sodium 134 L, Potassium 4.0, Chloride 97 L, Carbon Dioxide 27.0, Anion Gap 10, BUN 9, Creatinine 0.90, Estim Creat Clear Calc 122.07, Est GFR (MDRD) Af Amer 120, Est GFR (MDRD) Non-Af 99, BUN/Creatinine Ratio 10.0, Glucose 73 L, Calcium 8.7, Total Bilirubin 1.20 H, AST 122 H, ALT 215 H, Alkaline Phosphatase 105, Total Protein 6.8, Albumin 3.9, Globulin 2.9, Albumin/Globulin Ratio 1.3 Physical Exam Narrative Physical exam: General: Alert, Oriented x3, Cooperative, No apparent distress, Well developed HEENT: Atraumatic Oral: Moist Mucosa Neck: Supple Lungs: Clear to auscultation Cardiovascular: HS I+II, regular, no murmurs Abdomen: Bowel Sounds Present, Soft, Non Tender Extremities: No edema Assessment & Plan Assessment/Plan (1) Alcohol withdrawal: QUALIFIERS: Complication of substance-induced condition: uncomplicated Qualified Code(s): F10.230 - Alcohol dependence with withdrawal, uncomplicated (2) Alcohol abuse: (3) Tobacco abuse: (4) Anxiety: PLAN: 1. Acute alcohol withdrawal in a known alcohol use disorder, improving Will continue with phenobarbital withdrawal protocol 2. Elevated liver function in the setting of alcoholic liver disease Will get liver ultrasound, hepatitis profile 3. Nicotine dependence, on replacement 5. GERD, on PPI 6. DVT PPx- low risk Charges/Coding Visit Charges Inpatient E&M: 05334 Subs Hosp L2
--- NOTE | 2020-10-11 10:23 | ADDICTION ---
This senior underwriter attempted to meet with PT. PT was asleep upon this senior underwriter's arrival. PT woke up and requested to be seen at next visit tomorrow, 10/12. This senior underwriter will attempt to meet with PT on 10/12/20.
[2020-10-11 13:09] LABS: Pathologist Review Reviewed
--- NOTE | 2020-10-11 15:42 | US_ITS ---
STUDY: ABDOMINAL ULTRASOUND - RIGHT UPPER QUADRANT REASON FOR VISIT: Male, 40 years old Elevated liver function TECHNIQUE: Ultrasound evaluation of the right upper quadrant was performed with real-time and static espinoza-scale imaging. TECHNICAL QUALITY: Adequate. COMPARISON: None. FINDINGS: Liver: The liver is enlarged and measures 20.3 cm. There is increased echogenicity consistent with fatty infiltration. The bile ducts are within normal limits. There is hepatic color flow. The direction of portal flow is hepatopetal. There is no demonstrated mass lesion. Gallbladder: Normal distended gallbladder. The gallbladder wall measures 2 mm. There is a negative sonographic Ribeiro''s sign. There is no pericholecystic fluid. There are no gallstones. A small amount of sludge is seen within the gallbladder lumen. Common Bile Duct (C.B.D.): The common bile duct measures 3 mm. Pancreas: Normal size of the head, body and tail of the pancreas. There is normal echogenicity of the pancreas. There is no demonstrated pancreatic mass or cyst. Right Kidney: Normal size of the right kidney. The right kidney measures 11.7 cm x 5.7 cm x 6.2 cm. Normal renal cortex. The right cortex measures 1.9 cm. There is no demonstrated renal mass or cyst. There is no right hydronephrosis. US/Liver IMPRESSION: Hepatomegaly and fatty infiltration of the liver. Electronically Signed: Yusuf Borjas MD at 21:37 EDT , Service support ,
--- NOTE | 2020-10-11 16:44 | CHAPLAIN ---
Type of Pastoral Visit _x__ Initial Visit ___ Follow-up Visit ___ On-call Visit ___ General Patient Visit ___ Spiritual Assessment ___ Family Conference ___ Bereavement ___ Rapid Response ___ Code Blue ___ Other (describe below) Pastoral Care Referral From _x__ Patient ___ Family ___ Nurse ___ Physician ___ Clearing Inspector ___ Glaze Mixer ___ Other (describe below) Sacrament/Intervention ___ Active listening ___ Anointing ___ Congregation ___ Bereavement ___ Communion ___ [place] exploration ___ ___ Life review ___ Prayer ___ Reconciliation ___ Sacrament of Sick ___ Supportive presence ___ Wedding _x__ Other (describe below) Pastoral Comments patient was sleeping but awoke to his name; pt says that tomorrow would be a better day to check on him
[2020-10-11] MEDS: traZODone 100 MG Tablet PO (22:41)
[2020-10-11] MEDS: Ibuprofen 600 MG Tablet PO (22:41)
[2020-10-12] MEDS: Phenobarbital 32.4 MG Tablet 64.8 MG PO ×6 (03:07→22:00)
[2020-10-12 03:08] VITALS: BP 131/90; PULSE 83; RESP 16; TEMP 36.5; O2SAT 96
[2020-10-12 05:46] LABS: Absolute Lymphocyte Count 0.73 X10^3/uL (0.83-4.51); Absolute Neutrophil Count 2.1 X10^3/uL (2.0-7.7); Basophil# 0.03 X10^3/uL; Basophil% 0.8 % (0-1); Eosinophil# 0.05 X10^3/uL; Eosinophils% 1.4 % (0-5); Hematocrit 37.4 % (40-54); Hemoglobin 12.4 g/dL (13.0-16.5); Lymphocyte # 0.73 X10^3/ul (0.83-4.51); Lymphocyte % 20.7 % (19-41); Mean Corp Hgb Conc 33.2 g/dL (32-36); Mean Corpuscular Hgb 29.9 pg (27.0-32.0); Mean Corpuscular Volume 90.1 fL (80-94); Mean Platelet Vol. 11.7 fl (6.2-12.0); Monocyte# 0.59 X10^3/uL; Monocyte% 16.7 % (0-10); NRBC Flagged by Analyzer 0 % (0-5); Neutrophil # 2.12 X10^3/uL (2.7-7.7); Neutrophil % 60.1 % (47-70); Platelet Count 142 K/mm3 (150-450); RBC Distribution Width SD 39.2 fl (35.1-43.9); Red Blood Count 4.15 M/mm3 (4.6-6.2); White Blood Count 3.5 K/mm3 (4.4-11.0)
[2020-10-12 06:10] LABS: ALB/GLOB Ratio 1.2 RATIO (0.9-2.4); AST(SGOT) 68 U/L (15-37); Alanine Aminotransfer ALT/SGPT 167 U/L (16-61); Albumin, Serum 3.7 g/dL (3.2-5.0); Alkaline Phosphatase 107 U/L (45-117); Anion Gap 11 (5-15); BUN 17 mg/dL (7-18); BUN/Creat Ratio 17.1 RATIO (10-20); Calcium,Total 8.9 mg/dL (8.5-10.1); Chloride 99 mmol/L (98-107); Creatinine, Serum 0.99 mg/dL (0.70-1.30); EST Glomerular Filtration Rate 89 mL/min (>60); Est Glom Filt Rate - Afr Amer 107 mL/min (>60); Estimated Creatinine Clearance 110.97 ml/min; Globulin 3.1 g/dL (2.2-4.2); Glucose 113 mg/dL (74-106); Potassium 3.5 mmol/L (3.5-5.1); Protein, Total 6.8 g/dL (6.4-8.2); Sodium Level 136 mmol/L (136-145)
[2020-10-12] MEDS: hydrOXYzine PAM 25 MG Capsule 50 MG PO ×2 (06:26→20:01)
[2020-10-12 07:46] VITALS: O2SAT 95
--- NOTE | 2020-10-12 09:46 | ADDICTION ---
This commercial underwriter met with PT to conduct ASAM, MSE, AUDIT assessments and to plan for d/c. All assessments completed. PT requested a referral to [facility] ([facility]). This commercial underwriter will make referral and will coordinate, as needed, to plan for a direct admit post d/c from [facility].
[2020-10-12 10:00] VITALS: BP 117/69; PULSE 83; RESP 16; TEMP 36.8; O2SAT 95
[2020-10-12] MEDS: Multivitamins,Therapeutic Tablet 1 TABLET PO (10:24)
[2020-10-12] MEDS: Pantoprazole Sodium 40 MG Tablet PO (10:24)
[2020-10-12] MEDS: Folic Acid 1 MG Tablet PO (10:24)
[2020-10-12] MEDS: Thiamine Hydrochloride 100 MG Tablet PO (10:24)
[2020-10-12] MEDS: Gabapentin 300 MG Capsule PO (10:28)
--- NOTE | 2020-10-12 14:56 | PCM.PN.HOSP ---
Subjective Subjective Patient was seen and examined. Denied any new complaints. Objective Data Objective Data Vital Signs: Vital Signs Temp Pulse Resp BP Pulse Ox 98.2 F 83 16 117/69 95 10/12/20 10:00 10/12/20 10:00 10/12/20 10:00 10/12/20 10:00 10/12/20 10:00 Oxygen Delivery Method Room Air Weight: 79.1 kg Body Mass Index (BMI) 23.0 Intake & Output: Intake and Output for Last 24 Hours 10/10/20 10/11/20 10/12/20 23:59 23:59 23:59 Intake Total 1650 / 1650 500 / 920 1060 / 1060 Balance 1650 / 1650 500 / 920 1060 / 1060 Lab / Micro Data Result Diagrams: 10/12/20 05:24 10/12/20 05:24 Labs: Laboratory Results - last 24 hr 10/12/20 05:24: WBC 3.5 L, RBC 4.15 L, Hgb 12.4 L, Hct 37.4 L, MCV 90.1, MCH 29.9, MCHC 33.2, RDW Std Deviation 39.2, RDW Coeff of Cesar 12.0, Plt Count 142 L, MPV 11.7, Immature Gran % (Auto) 0.300, Neut % (Auto) 60.1, Lymph % (Auto) 20.7, [place] % (Auto) 16.7 H, Eos % (Auto) 1.4, Baso % (Auto) 0.8, Absolute Neuts (auto) 2.1, Absolute Lymphs (auto) 0.73 L, Nucleated RBC % 0 10/12/20 05:24: Sodium 136, Potassium 3.5, Chloride 99, Carbon Dioxide 26.0, Anion Gap 11, BUN 17, Creatinine 0.99, Estim Creat Clear Calc 110.97, Est GFR (MDRD) Af Amer 107, Est GFR (MDRD) Non-Af 89, BUN/Creatinine Ratio 17.1, Glucose 113 H, Calcium 8.9, Total Bilirubin 0.80, AST 68 H, ALT 167 H, Alkaline Phosphatase 107, Total Protein 6.8, Albumin 3.7, Globulin 3.1, Albumin/Globulin Ratio 1.2 Radiography Diagnostic Testing: Radiology Impression Liver Ultrasound 10/11/20 15:42 IMPRESSION: Hepatomegaly and fatty infiltration of the liver. Electronically Signed: Yusuf Borjas MD at 21:37 EDT , Service support , Physical Exam Narrative Physical exam: General: Alert, Oriented x3, Cooperative, No apparent distress, Well developed HEENT: Atraumatic Oral: Moist Mucosa Neck: Supple Lungs: Clear to auscultation Cardiovascular: HS I+II, regular, no murmurs Abdomen: Bowel Sounds Present, Soft, Non Tender Extremities: No edema Assessment & Plan Assessment/Plan (1) Alcohol withdrawal: QUALIFIERS: Complication of substance-induced condition: uncomplicated Qualified Code(s): F10.230 - Alcohol dependence with withdrawal, uncomplicated (2) Alcohol abuse: (3) Tobacco abuse: (4) Anxiety: PLAN: 1. Acute alcohol withdrawal in a known alcohol use disorder patient, improving Continue with phenobarbital withdrawal protocol 2. Elevated liver function in the setting of alcoholic liver disease Liver ultrasound shows hepatomegaly and fatty infiltration of the liver. Hepatitis profile is pending 3. Nicotine dependence, on replacement 5. GERD, on PPI 6. DVT PPx- low risk Charges/Coding Visit Charges Inpatient E&M: 42852 Subs Hosp L2
--- NOTE | 2020-10-12 15:51 | CASEMGMT ---
Social Work Note SW received call from Julia with [facility] stating pt is to direct admit to [facility] . Physician updated. Marsha Nicole INTERNATIONAL RECRUITER, GUARDIAN FAMILY MEMBER
[2020-10-12 16:00] VITALS: BP 118/52; PULSE 75; RESP 16; TEMP 36.6; O2SAT 96
[2020-10-12 21:54] VITALS: BP 130/87; PULSE 90; RESP 16; TEMP 37.1; O2SAT 98
[2020-10-12] MEDS: traZODone 100 MG Tablet PO (21:54)
[2020-10-13 04:09] LABS: HEPATITIS B SURFACE AG Negative (Negative); Hepatitis A IgM Antibody Negative (Negative); Hepatitis B Core AB IgM Negative (Negative)
[2020-10-13 06:06] VITALS: BP 147/89; PULSE 83; RESP 16; TEMP 36.8; O2SAT 97
[2020-10-13] MEDS: Phenobarbital 32.4 MG Tablet 64.8 MG PO (06:07)
[2020-10-13] MEDS: Thiamine Hydrochloride 100 MG Tablet PO (09:33)
[2020-10-13] MEDS: Multivitamins,Therapeutic Tablet 1 TABLET PO (09:33)
[2020-10-13] MEDS: Folic Acid 1 MG Tablet PO (09:33)
[2020-10-13] MEDS: Pantoprazole Sodium 40 MG Tablet PO (09:33)
--- NOTE | 2020-10-13 09:46 | CASEMGMT ---
Social Work Note DANII updated that pt is requesting to leave today. DANII updated staff that per [facility], plan was for pt to stay at [facility] till tomorrow when pt can direct admit to residential at [facility]. DANII placed a call to Julia with [facility], she is out today, Solomon is covering. DANII placed a call to Solomon with [facility], Solomon states she is on her way to [facility]. DANII asked Solomon to see pt to confirm discharge planning. Solomon to see pt. RN updated. Marsha Nicole COMPUTER SUPPORT TECHNICIAN, SLAB INSPECTOR
--- NOTE | 2020-10-13 10:17 | PCM.DC ---
Discharge Instructions Diet Discharge Diet: No restrictions Activity Discharge Activity: Return to Normal Activity Follow Up Care Test Results: Test results from this visit will be discussed in further detail at your follow-up appointment, if applicable. Discharge Plan Admission Admit Date/Time: 10/10/20 13:38 Primary Reason for Your Visit: Acute alcohol withdrawal Attending Provider: Keysha Mooney Primary Care Provider: Brennan Physician,Mary Primary Discharge Orders/Prescriptions Prescriptions: Continued pantoprazole 40 MG tablet 40 mg PO DAILY RF: 0 Referrals / Follow Up: Care Physician,No Primary [Primary Care Provider] - Within 1 Week Disposition Disposition (needs filled in before D/C Order can be placed): Home, Self Care
[2020-10-13 10:23] LABS: Hep C Antibodies <0.1 s/co ratio (0.0-0.9)
--- NOTE | 2020-10-13 10:23 | DS.PCM_ITS ---
Providers Date of Admission: 10/10/20 Date of Discharge: 10/13/20 Primary Care Physician: Mary Primary Care Phys Reason For Visit: ACUTE ETOH WITHDRAWAL Diagnosis Discharge Diagnosis (1) Alcohol withdrawal: Status: Resolved Code(s): F10.239 - Alcohol dependence with withdrawal, unspecified Qualifiers: Complication of substance-induced condition: uncomplicated Qualified Code(s): F10.230 - Alcohol dependence with withdrawal, uncomplicated (2) Alcohol abuse: Status: Chronic Code(s): F10.10 - Alcohol abuse, uncomplicated (3) Tobacco abuse: Status: Chronic Code(s): Z72.0 - Tobacco use (4) Anxiety: Status: Chronic Code(s): F41.9 - Anxiety disorder, unspecified Medications at Discharge Home Medications pantoprazole 40 mg PO DAILY 06/29/20 Hospital Course Operations None Procedures None Summary of Care Provided Minutes Spent on Discharge: 25 Hospital Course: 40-year-old male with past medical history of anxiety and depression, chronic alcohol use disorder who presented with acute alcohol withdrawal. Patient drinks about 2 beers a day. He stated I sent the statute 3 hours prior to arrival with nausea, tremors, agitation tactile disturbances. He recently had broken up with his girlfriend and was heartbroken and was drinking more alcohol. His work-up was unremarkable except for elevated LFTs. Ultrasound liver showed fatty liver with hepatomegaly. His acute hepatitis panel was negative. Patient was admitted to the [facility] floor managing the alcohol withdrawal protocol. He improved and was discharged to follow-up at 118 the outpatient. Physical Exam Narrative Physical exam: General: Alert, Oriented x3, Cooperative, No apparent distress, Well developed HEENT: Atraumatic Oral: Moist Mucosa Neck: Supple Lungs: Clear to auscultation Cardiovascular: HS I+II, regular, no murmurs Abdomen: Bowel Sounds Present, Soft, Non Tender Extremities: No edema Weight / BMI Weight Weight: 79.1 kg Body Mass Index (BMI) 23.0 ABG / Lab / Microbiology Data Result Diagrams: 10/12/20 05:24 10/12/20 05:24 Laboratory: Laboratory Results - last 24 hr 10/11/20 : Hepatitis A IgM Ab Negative, Hep Bs Antigen Negative, Hep B Core IgM Ab Negative, Hepatitis C Ab (EIA) <0.1 D/C Instructions Discharge Diet: No restrictions Meaningful Use Info Meaningful Use Diagnoses (Choose all that apply): None applicable Discharge Plan Admission Admit Date/Time: 10/10/20 13:38 Primary Reason for Your Visit: Acute alcohol withdrawal Attending Provider: Keysha Mooney Primary Care Provider: Care Physician,No Primary Discharge Orders/Prescriptions Prescriptions: Continued pantoprazole 40 MG tablet 40 mg PO DAILY RF: 0 Referrals / Follow Up: Care Physician,No Primary [Primary Care Provider] - Within 1 Week Disposition Disposition (needs filled in before D/C Order can be placed): Home, Self Care Charges/Coding Visit Charges Inpatient E&M: 17711 Disch Hosp
[2020-10-13 10:33] VITALS: BP 140/94; PULSE 90; RESP 16; TEMP 36.9; O2SAT 98
[2020-10-13 10:35] VITALS: BP 140/94; PULSE 90; RESP 16; TEMP 36.9; O2SAT 98
== END 2020-10-13 10:53 | disposition home or self-care (01) | DRG 775 ==
LOC: ED 13:37 → MS3 13:48
PROVIDERS: Admitting Provider Family Medicine; Emergency Provider Emergency Medicine; Visit Provider Internal Medicine
DX: F10.230 Alcohol dependence with withdrawal, uncomplicated (principal); Y90.8 Blood alcohol level of 240 mg/100 ml or more; K21.9 Gastro-esophageal reflux disease without esophagitis; F32.9 Major depressive disorder, single episode, unspecified; F41.9 Anxiety disorder, unspecified; F17.210 Nicotine dependence, cigarettes, uncomplicated; Z79.899 Other long term (current) drug therapy; Z81.1 Family history of alcohol abuse and dependence
CPT/HCPCS: 36415; 76705; 80053; 80074; 80307; 82077; 83735; 84100; 85025; 99283; 99406; J7120; A4216